=== PATIENT | male | born 1965 | race Hispanic/Latino ===

== ENCOUNTER 2020-07-07 13:34 | Emergency (ER) | payer OTHER, SELFPAY ==
[2020-07-07 13:47] VITALS: BP 127/78; PULSE 105; RESP 18; TEMP 39.4; O2SAT 96; BMI 23.3
[2020-07-07 14:26] LABS: COVID19 -Nasal RAPID Negative (Negative)
--- NOTE | 2020-07-07 14:42 | ED.GENADULT ---
HPI - General Adult General Chief complaint: Upper Respiratory Symptoms Stated complaint: sore throat, body aches Time Seen by Provider: 07/07/20 14:40 Source: patient Mode of arrival: Ambulatory Limitations: no limitations History of Present Illness HPI narrative: 55-year-old male. There is somewhat of a language barrier here for evaluation of a sore throat and a dry nose and bloody nose for the past 2 days. Has had a cough. No fevers. No rashes. Has not tried anything for symptoms prior to arrival. Related Data Allergies Allergy/AdvReac Type Severity Reaction Status Date / Time Penicillins [PENICILLINS] Allergy Unknown Verified 06/13/18 13:14 Review of Systems Constitutional Constitutional: Denies fatigue and Denies headache(s) Eyes Eyes: Denies eye pain ENT Ears, Nose, Mouth, and Throat: Denies headache(s), Reports epistaxis, Reports sinus pain and Reports sore throat Cardiovascular Cardiovascular: Denies chest pain and Denies dyspnea Respiratory Respiratory: Denies dyspnea Gastrointestinal Gastrointestinal: Denies abdominal pain, Denies nausea and Denies vomiting Genitourinary Genitourinary: Denies dysuria Genitourinary: Denies dysuria Musculoskeletal Musculoskeletal: Denies myalgias Integumentary/Breasts Skin/Breast: Denies rash Neurologic Neurologic: Denies behavioral changes and Denies headache(s) Psychiatric Psychiatric: Denies behavioral changes Endocrine Endocrine: Denies fatigue Hematologic/Lymphatic On Anticoagulants: No Allergic/Immunologic Allergic/Immunologic: Denies urticaria Patient History Medical History Patient denies medical problems Social History Smoking Status: Never smoker Smoking Status: Never smoker alcohol intake frequency: 3 or more drinks per day Substance Use Type: does not use Exam Initial Vital Signs Initial Vital Signs: Vital Signs Temperature 103 F H 07/07/20 13:47 Pulse Rate 105 H 07/07/20 13:47 Respiratory Rate 18 07/07/20 13:47 Blood Pressure 127/78 07/07/20 13:47 Pulse Oximetry 96 07/07/20 13:47 Const General: cooperative and comfortable Limitations: mental status not altered HENMT Head: normal to inspection and normocephalic Nose: external nose normal Face and sinus: normal facial exam Mouth: oral mucosae normal Throat: posterior oropharynx normal Eyes General: appearance normal, both eyes and all related structures Resp Effort & Inspection: normal respiratory effort Auscultation: clear to auscultation bilaterally Cardio Rate: regular rate Rhythm: regular rhythm GI Inspection: non-distended Palpation: soft Skin Lesions: no lesions Rashes: no rashes Neuro General: patient alert and patient awake Speech: speech normal Extrem General: normal to inspection and capillary refill normal Psych Appearance: grossly normal and well kempt Course Orders Ordered: ED Orders 07/07/20 14:00 COVID19 -Nasal swab/Pre-Proc Stat Discontinued Medications Dexamethasone (Dexamethasone 4 Mg Tablet) 12 mg PO NOW ONE Stop: 07/07/20 14:47 Vital Signs Vital signs: Vital Signs - 8 hr 07/07/20 13:47 Temperature 103 F H Pulse Rate 105 H Respiratory Rate 18 Blood Pressure 127/78 Pulse Oximetry 96 Medical Decision Making Lab Data Lab results reviewed: Yes I reviewed the patient's lab results. Labs: Lab Results 07/07/20 Range/Units 14:00 SARS-CoV-2 (PCR) Negative (Negative) Point of Care Testing Rapid Strep A Negative Point of care testing: Point of Care Testing Rapid Strep A Negative MDM Narrative Medical decision making narrative: Patient's COVID and rapid strep is negative. He has no signs of peritonsillar abscess. I do suspect given his symptoms that this is allergy/viral upper respiratory. No indication for antibiotics. He was given a dose of steroids as this will probably help much of his symptoms. Was given return precautions and follow-up instructions. He expressed understanding and agreement. Discharge Plan Departure Patient Disposition: Home Clinical Impression: Pharyngitis Instructions: Sore Throat Activity Restrictions/Additional Instructions: I recommend that you start a medicine called Claritin/loratadine. You can purchase this [id number] at any drug store/pharmacy. Take it as needed 1 time a day. Contact your primary provider for follow-up. Return to the emergency department for any new or worsening symptoms
[2020-07-07] MEDS: dexAMETHasone 4 MG TABLET 12 MG PO (15:06)
[2020-07-07 15:36] VITALS: PULSE 97; RESP 17; O2SAT 98
== END 2020-07-07 15:36 | disposition home or self-care (01) ==
PROVIDERS: Emergency Medicine; Emergency Provider Emergency Medicine
DX: J02.9 Acute pharyngitis, unspecified (principal); Z20.822 Contact with and (suspected) exposure to COVID-19; R04.0 Epistaxis
CPT/HCPCS: 87635; 87880; 99283; C9803

== ENCOUNTER 2020-07-09 04:48 | Emergency (ER) | payer OTHER, SELFPAY ==
[2020-07-09] VITALS (12 sets, daily range): BP systolic 117–145; BP diastolic 68–95; PULSE 96–135; RESP 18–25; TEMP 37.4–39.7; O2SAT 93–98; BMI 29.3
--- NOTE | 2020-07-09 05:04 | DI.RAD.S_ITS ---
PROCEDURE: XR CHEST 1V INDICATIONS: fever TECHNIQUE: One view of the chest was acquired. COMPARISON: [facility], CR, XR ABDOMEN 1 VIEW, 04/07/2019, 13:59. FINDINGS: Surgical changes and devices: None. Lungs and pleura: Patchy opacity at the left lung base. There is no pneumothorax or large volume pleural effusion. Mediastinum: Mediastinal contours appear normal. Heart size is normal. Bones and chest wall: No suspicious bony lesions. Overlying soft tissues appear unremarkable. IMPRESSION: Patchy opacity at the left lung base concerning for pneumonia in the correct clinical setting. Recommend follow-up to resolution. Dictated by: Danny Ponce D.O. on 07/09/2020 at 8:13 Approved by: Danny Ponce D.O. on 07/09/2020 at 8:15
--- NOTE | 2020-07-09 05:07 | ED_ITS ---
HPI - Fever <Sarai Gutierres DO - Last Filed: 07/10/20 00:16> General Chief Complaint: Fever Stated Complaint: FEVER, VOMITING, SHAKING Time Seen by Provider: 07/09/20 04:53 Source: patient and old records reviewed Mode of arrival: Ambulatory Limitations: no limitations History of Present Illness HPI Narrative: Patient is a 55-year-old male with no known past medical history presenting with fever and shaking. He was seen evaluated here 2 days ago with sore throat as he was tested for COVID and strep at that time and discharged home. He has been taking Tylenol and ibuprofen as needed. He says he has a mild sore throat now but says it really isn't bad. He has had some coughing off and on. His eyes any chest pain or palpitations pseudo abdominal pain he has had some nausea and vomiting and no diarrhea. He is currently found to be tachycardic with a fever of 103.5. Last dose of Tylenol was around 4:00 a.m. but he took 325 mg. MD complaint: fever Maximum Temperature: 103.5 F Related Data Previous Rx's Medication Instructions Recorded cefdinir 300 mg PO Q12H #14 cap 07/09/20 ibuprofen 800 mg PO Q8H PRN #20 tab 07/09/20 Allergies Allergy/AdvReac Type Severity Reaction Status Date / Time Penicillins [PENICILLINS] Allergy Unknown Verified 06/13/18 13:14 Review of Systems <Sarai Gutierres DO - Last Filed: 07/10/20 00:16> Review of Systems ROS Unobtainable: All systems reviewed & are unremarkable except as noted in HPI and below Constitutional Constitutional: Reports body ache(s), Reports chills, Reports fatigue, Reports fever(s) and Denies frequent falls ENT Ears, Nose, Mouth, and Throat: Denies change in voice, Denies dizziness, Denies neck pain and Denies sore throat Cardiovascular Cardiovascular: Denies chest pain, Denies irregular heart rhythm, Denies lightheadedness, Denies palpitations, Denies dyspnea, Denies dyspnea on exertion and Denies orthopnea Respiratory Respiratory: Reports cough, Denies dyspnea and Denies dyspnea on exertion Gastrointestinal Gastrointestinal: Denies abdominal pain, Denies change in bowel habits, Denies diarrhea, Denies nausea and Reports vomiting Genitourinary Genitourinary: Denies urinary hesitancy and Denies urinary urgency Genitourinary: Denies urinary hesitancy and Denies urinary urgency Musculoskeletal Musculoskeletal: Denies back pain, Denies myalgias, Denies neck pain and Denies numbness Integumentary/Breasts Skin/Breast: Denies pruritus, Denies erythema, Denies rash and Denies wounds Neurologic Neurologic: Denies behavioral changes, Denies confusion, Denies dizziness, Denies frequent falls and Denies numbness Psychiatric Psychiatric: Denies behavioral changes and Denies confusion Endocrine Endocrine: Reports fatigue and Denies palpitations Patient History <Sarai Gutierres DO - Last Filed: 07/10/20 00:16> Medical History Patient denies medical problems Social History Smoking Status: Never smoker Smoking Status: Never smoker alcohol intake frequency: 3 or more drinks per day Substance Use Type: does not use Exam <Sarai Gutierres DO - Last Filed: 07/10/20 00:16> Initial Vital Signs Initial Vital Signs: Vital Signs Temperature 103.5 F H 07/09/20 04:55 Pulse Rate 135 H 07/09/20 04:55 Respiratory Rate 25 H 07/09/20 04:55 Blood Pressure 145/92 H 07/09/20 04:55 Pulse Oximetry 98 07/09/20 04:55 GENERAL: Alert very talkative 55-year-old male and in no acute distress. HEENT: Head atraumatic,EOMI, pupils reactive, face symmetric, moist mucous membranes PHARYNX: Very minimal erythema no uvular swelling or deviation no tonsillar exudate airway intact CARDIOVASCULAR: Regular rate and rhythm without murmurs, rubs or gallops. RESPIRATORY: Breath sounds equal bilaterally, no wheezes rales or rhonchi. ABDOMEN: Soft, nontender. Normoactive bowel sounds all 4 quadrants. No guarding or rebound. : No CVA tenderness EXTREMITIES: Normal range of motion, no clubbing or edema. Neurovascularly intact NEUROLOGICAL: Alert and oriented x4.Normal gait and speech. SKIN: Warm, dry, no laceration, no petechiae, no rashes or lesions. <Crys Ryan DO - Last Filed: 07/09/20 18:47> Initial Vital Signs Initial Vital Signs: Vital Signs Temperature 103.5 F H 07/09/20 04:55 Pulse Rate 135 H 07/09/20 04:55 Respiratory Rate 25 H 07/09/20 04:55 Blood Pressure 145/92 H 07/09/20 04:55 Pulse Oximetry 98 07/09/20 04:55 Course <Sarai Nenita, - Last Filed: 07/10/20 00:16> Orders Ordered: Discontinued Medications Acetaminophen (Acetaminophen 325 Mg Tablet) 650 mg PO NOW ONE Stop: 07/09/20 05:05 Last Admin: 07/09/20 05:35 Dose: 650 mg Documented by: GUERDA Sodium Chloride (Normal Saline 0.9%) 1,000 mls @ 1,000 mls/hr IV CONT ALIN Last Infusion: 07/09/20 06:51 Dose: 0 mls/hr Documented by: Admin: 07/09/20 05:35 Dose: 1,000 mls/hr Documented by: GUERDA Sodium Chloride (Normal Saline 0.9%) 1,000 mls @ 1,000 mls/hr IV BOLUS ONE Stop: 07/09/20 07:48 Last Infusion: 07/09/20 08:17 Dose: 0 mls/hr Documented by: Admin: 07/09/20 06:56 Dose: 1,000 mls/hr Documented by: GUERDA Ceftriaxone Sodium/Dextrose (Rocephin) 1 gm in 50 mls @ 100 mls/hr IV NOW ONE Stop: 07/09/20 07:22 Last Infusion: 07/09/20 07:35 Dose: 0 mls/hr Documented by: Admin: 07/09/20 06:59 Dose: 100 mls/hr Documented by: GUERDA Ketorolac Tromethamine (Ketorolac 30 Mg/Ml Vial) 15 mg IV NOW ONE Stop: 07/09/20 05:05 Last Admin: 07/09/20 05:35 Dose: 15 mg Documented by: GUERDA Vital Signs Vital signs: Vital Signs - 8 hr 07/09/20 04:55 07/09/20 05:30 07/09/20 05:35 Temperature 103.5 F H 103.5 F H Pulse Rate 135 H 127 H Respiratory Rate 25 H 20 Blood Pressure 145/92 H 145/95 H Pulse Oximetry 98 95 07/09/20 06:00 07/09/20 06:30 07/09/20 06:45 Temperature 101.3 F H Pulse Rate 115 H 109 H Respiratory Rate 23 21 Blood Pressure 132/85 122/76 Pulse Oximetry 94 94 07/09/20 07:00 07/09/20 07:30 07/09/20 08:00 Temperature 99.7 F H Pulse Rate 116 H 105 H 96 H Respiratory Rate 22 19 19 Blood Pressure 137/83 117/68 120/73 Pulse Oximetry 93 93 95 07/09/20 08:30 07/09/20 08:53 Temperature 99.4 F Pulse Rate 96 H Respiratory Rate 18 Blood Pressure 123/73 Pulse Oximetry 95 <Crys Ryan DO - Last Filed: 07/09/20 18:47> Orders Ordered: Discontinued Medications Acetaminophen (Acetaminophen 325 Mg Tablet) 650 mg PO NOW ONE Stop: 07/09/20 05:05 Last Admin: 07/09/20 05:35 Dose: 650 mg Documented by: GEURDA Sodium Chloride (Normal Saline 0.9%) 1,000 mls @ 1,000 mls/hr IV CONT ALIN Last Infusion: 07/09/20 06:51 Dose: 0 mls/hr Documented by: Admin: 07/09/20 05:35 Dose: 1,000 mls/hr Documented by: GUERDA Sodium Chloride (Normal Saline 0.9%) 1,000 mls @ 1,000 mls/hr IV BOLUS ONE Stop: 07/09/20 07:48 Last Infusion: 07/09/20 08:17 Dose: 0 mls/hr Documented by: Admin: 07/09/20 06:56 Dose: 1,000 mls/hr Documented by: GUERDA Ceftriaxone Sodium/Dextrose (Rocephin) 1 gm in 50 mls @ 100 mls/hr IV NOW ONE Stop: 07/09/20 07:22 Last Infusion: 07/09/20 07:35 Dose: 0 mls/hr Documented by: Admin: 07/09/20 06:59 Dose: 100 mls/hr Documented by: GUERDA Ketorolac Tromethamine (Ketorolac 30 Mg/Ml Vial) 15 mg IV NOW ONE Stop: 07/09/20 05:05 Last Admin: 07/09/20 05:35 Dose: 15 mg Documented by: GUERDA Reevaluation(s) Reevaluation #1: Patient improved after fluids, Toradol and tylenol and received a dose of Rocephin in the department. Patient's did initially meet septic criteria with tachycardia, fever although patient did not have a leukocytosis he did have a leftward shift. 68 and ALT of 120 with no other major lab abnormalities. BUN was slightly elevated and patient was likely dehydrated. As was COVID and [facility] a strep swab as patient had complaint of pharyngitis on his prior visit. Throat culture is pending and imaging shows patchy left-sided infiltrate consistent with pneumonia. Blood cultures were also obtained and are pending today as well. Patient was started on cefdinir for coverage and is improved in the department on evaluation by myself and discharged home with strict return precautions. On re-evaluation patient is feeling better. He does request a prescription for 800 mg of ibuprofen to be sent to [facility] [place] along with his antibiotic. Time: 08:41 Vital Signs Vital signs: Vital Signs - 8 hr 07/09/20 04:55 07/09/20 05:30 07/09/20 05:35 Temperature 103.5 F H 103.5 F H Pulse Rate 135 H 127 H Respiratory Rate 25 H 20 Blood Pressure 145/92 H 145/95 H Pulse Oximetry 98 95 07/09/20 06:00 07/09/20 06:30 07/09/20 06:45 Temperature 101.3 F H Pulse Rate 115 H 109 H Respiratory Rate 23 21 Blood Pressure 132/85 122/76 Pulse Oximetry 94 94 07/09/20 07:00 07/09/20 07:30 07/09/20 08:00 Temperature 99.7 F H Pulse Rate 116 H 105 H 96 H Respiratory Rate 22 19 19 Blood Pressure 137/83 117/68 120/73 Pulse Oximetry 93 93 95 07/09/20 08:30 07/09/20 08:53 Temperature 99.4 F Pulse Rate 96 H Respiratory Rate 18 Blood Pressure 123/73 Pulse Oximetry 95 MDM - Fever <Sarai Gutierres DO - Last Filed: 07/10/20 00:16> Lab Data Attestation: I reviewed the patient's lab results. Result diagrams: 07/09/20 05:15 07/09/20 05:15 Labs: Lab Results 07/09/20 07/09/20 07/09/20 Range/Units 05:15 05:15 05:15 WBC 10.8 (4.5-11.0) X10^3/uL RBC 5.24 (4.5-5.9) X10^6/uL Hgb 16.0 (13.5-17.5) g/dL Hct 46.1 (41-53) % MCV 88.1 (80-100) fL MCH 30.5 (26-34) PG MCHC 34.7 (30-36) % RDW 12.8 (11.6-14.8) % Plt Count 205 (150-400) X10^3/uL Neut % (Auto) 79.1 H (50-75) % Lymph % (Auto) 9.9 L (25-40) % [place] % (Auto) 10.6 (3-14) % Eos % (Auto) 0.0 L (2-4) % Baso % (Auto) 0.4 (0-2) % Neut # (Auto) 8500 H (2749-4957) /uL Lymph # (Auto) 1100 (4403-1897) /uL [place] # (Auto) 1100 H (0-900) /uL Eos # (Auto) 0 (0-450) /uL Baso # (Auto) 0 (0-100) /uL Sodium 136 L (137-145) mmol/L Potassium 3.8 (3.4-5.1) mmol/L Chloride 100 (98-107) mmol/L Carbon Dioxide 27 (22-32) mmol/L BUN 28 H (9-20) mg/dL Creatinine 1.04 (0.66-1.25) mg/dL Estimated GFR > 60.0 (>60) mL/min BUN/Creatinine Ratio 26.9 H (6-22) Glucose 137 H (70-100) mg/dL Lactate 2.1 (0.7-2.1) mmol/L Calcium 9.4 (8.4-10.2) mg/dL Total Bilirubin 0.4 (0.2-1.3) mg/dL AST 68 H (17-59) IU/L ALT 120 H (<50) IU/L Alkaline Phosphatase 97 (38-126) U/L Total Protein 7.8 (6.3-8.2) g/dL Albumin 4.4 (3.5-5.0) g/dL Globulin 3.4 (1.7-4.1) g/dL Albumin/Globulin Ratio 1.3 (1.0-2.8) Procalcitonin 0.48 (<0.5) ng/mL Urine Color Urine Appearance Urine pH (4.5-8.0) Ur Specific [place] (1.000-1.035) Urine Protein (Negative) Urine Glucose (UA) (Negative) g/dL Urine Ketones (NEGATIVE) Urine Occult Blood (Negative) Urine Nitrate (Negative) Urine Bilirubin (NEGATIVE) Urine Urobilinogen (0.2) E.U./dL Ur Leukocyte Esterase (NEGATIVE) Urine RBC (0-5/HPF) Urine WBC (0-5/HPF) Ur Squamous Epith Cells (0-5/HPF) Urine Bacteria (None) Urine Mucus (Negative) Ur Culture Indicated? SARS-CoV-2 (PCR) (Negative) Group A Strep (PCR) 07/09/20 07/09/20 07/09/20 Range/Units 05:56 06:20 06:30 WBC (4.5-11.0) X10^3/uL RBC (4.5-5.9) X10^6/uL Hgb (13.5-17.5) g/dL Hct (41-53) % MCV (80-100) fL MCH (26-34) PG MCHC (30-36) % RDW (11.6-14.8) % Plt Count (150-400) X10^3/uL Neut % (Auto) (50-75) % Lymph % (Auto) (25-40) % [place] % (Auto) (3-14) % Eos % (Auto) (2-4) % Baso % (Auto) (0-2) % Neut # (Auto) (6174-9488) /uL Lymph # (Auto) (6775-3374) /uL [place] # (Auto) (0-900) /uL Eos # (Auto) (0-450) /uL Baso # (Auto) (0-100) /uL Sodium (137-145) mmol/L Potassium (3.4-5.1) mmol/L Chloride (98-107) mmol/L Carbon Dioxide (22-32) mmol/L BUN (9-20) mg/dL Creatinine (0.66-1.25) mg/dL Estimated GFR (>60) mL/min BUN/Creatinine Ratio (6-22) Glucose (70-100) mg/dL Lactate (0.7-2.1) mmol/L Calcium (8.4-10.2) mg/dL Total Bilirubin (0.2-1.3) mg/dL AST (17-59) IU/L ALT (<50) IU/L Alkaline Phosphatase (38-126) U/L Total Protein (6.3-8.2) g/dL Albumin (3.5-5.0) g/dL Globulin (1.7-4.1) g/dL Albumin/Globulin Ratio (1.0-2.8) Procalcitonin (<0.5) ng/mL Urine Color Yellow Urine Appearance Clear Urine pH 6.0 (4.5-8.0) Ur Specific [place] 1.025 (1.000-1.035) Urine Protein 1+ H (Negative) Urine Glucose (UA) Negative (Negative) g/dL Urine Ketones Negative (NEGATIVE) Urine Occult Blood Trace-lysed (Negative) Urine Nitrate Negative (Negative) Urine Bilirubin Negative (NEGATIVE) Urine Urobilinogen 0.2 (0.2) E.U./dL Ur Leukocyte Esterase Negative (NEGATIVE) Urine RBC 0-1/hpf (0-5/HPF) Urine WBC 0-1/hpf (0-5/HPF) Ur Squamous Epith Cells 0-1 /hpf (0-5/HPF) Urine Bacteria Occasional (0-1) (None) Urine Mucus 1+ H (Negative) Ur Culture Indicated? Cult not indicated SARS-CoV-2 (PCR) Negative (Negative) Group A Strep (PCR) Negative Imaging Data Chest x-ray: Radiologist's Impression: Patchy infiltrate within left lower lobe. ECG Data Attestation: I personally reviewed and interpreted this ECG as follows: Prior ECG tracings: not available for review Interpretation: Sinus tachycardia rate 123 p.r. interval 132 QRS 92 acute CC [address] changes or T-wave inversions MDM Narrative Medical decision making narrative: Patient has been complaining of sore throat he denies any cough or shortness of breath however x-ray does show patchy infiltrate within the left lower lobe. Culture for strep is sent to rapid strep are negative. Throat is mildly erythematous but no exudate. Heart rate improved with fever control and IV fluids. At this time will treat for pneumonia cover for strep with 3rd generation cephalosporin. Patient signed out to Dr. Ryan waiting for IV fluids and IV antibiotics <Crys Ryan, DO - Last Filed: 07/09/20 18:47> Lab Data Attestation: I reviewed the patient's lab results. Labs: Lab Results 07/09/20 07/09/20 07/09/20 Range/Units 05:15 05:15 05:15 WBC 10.8 (4.5-11.0) X10^3/uL RBC 5.24 (4.5-5.9) X10^6/uL Hgb 16.0 (13.5-17.5) g/dL Hct 46.1 (41-53) % MCV 88.1 (80-100) fL MCH 30.5 (26-34) PG MCHC 34.7 (30-36) % RDW 12.8 (11.6-14.8) % Plt Count 205 (150-400) X10^3/uL Neut % (Auto) 79.1 H (50-75) % Lymph % (Auto) 9.9 L (25-40) % [place] % (Auto) 10.6 (3-14) % Eos % (Auto) 0.0 L (2-4) % Baso % (Auto) 0.4 (0-2) % Neut # (Auto) 8500 H (0240-9410) /uL Lymph # (Auto) 1100 (9086-7724) /uL [place] # (Auto) 1100 H (0-900) /uL Eos # (Auto) 0 (0-450) /uL Baso # (Auto) 0 (0-100) /uL Sodium 136 L (137-145) mmol/L Potassium 3.8 (3.4-5.1) mmol/L Chloride 100 (98-107) mmol/L Carbon Dioxide 27 (22-32) mmol/L BUN 28 H (9-20) mg/dL Creatinine 1.04 (0.66-1.25) mg/dL Estimated GFR > 60.0 (>60) mL/min BUN/Creatinine Ratio 26.9 H (6-22) Glucose 137 H (70-100) mg/dL Lactate 2.1 (0.7-2.1) mmol/L Calcium 9.4 (8.4-10.2) mg/dL Total Bilirubin 0.4 (0.2-1.3) mg/dL AST 68 H (17-59) IU/L ALT 120 H (<50) IU/L Alkaline Phosphatase 97 (38-126) U/L Total Protein 7.8 (6.3-8.2) g/dL Albumin 4.4 (3.5-5.0) g/dL Globulin 3.4 (1.7-4.1) g/dL Albumin/Globulin Ratio 1.3 (1.0-2.8) Procalcitonin 0.48 (<0.5) ng/mL Urine Color Urine Appearance Urine pH (4.5-8.0) Ur Specific [place] (1.000-1.035) Urine Protein (Negative) Urine Glucose (UA) (Negative) g/dL Urine Ketones (NEGATIVE) Urine Occult Blood (Negative) Urine Nitrate (Negative) Urine Bilirubin (NEGATIVE) Urine Urobilinogen (0.2) E.U./dL Ur Leukocyte Esterase (NEGATIVE) Urine RBC (0-5/HPF) Urine WBC (0-5/HPF) Ur Squamous Epith Cells (0-5/HPF) Urine Bacteria (None) Urine Mucus (Negative) Ur Culture Indicated? SARS-CoV-2 (PCR) (Negative) Group A Strep (PCR) 07/09/20 07/09/20 07/09/20 Range/Units 05:56 06:20 06:30 WBC (4.5-11.0) X10^3/uL RBC (4.5-5.9) X10^6/uL Hgb (13.5-17.5) g/dL Hct (41-53) % MCV (80-100) fL MCH (26-34) PG MCHC (30-36) % RDW (11.6-14.8) % Plt Count (150-400) X10^3/uL Neut % (Auto) (50-75) % Lymph % (Auto) (25-40) % [place] % (Auto) (3-14) % Eos % (Auto) (2-4) % Baso % (Auto) (0-2) % Neut # (Auto) (0378-7424) /uL Lymph # (Auto) (7180-0401) /uL [place] # (Auto) (0-900) /uL Eos # (Auto) (0-450) /uL Baso # (Auto) (0-100) /uL Sodium (137-145) mmol/L Potassium (3.4-5.1) mmol/L Chloride (98-107) mmol/L Carbon Dioxide (22-32) mmol/L BUN (9-20) mg/dL Creatinine (0.66-1.25) mg/dL Estimated GFR (>60) mL/min BUN/Creatinine Ratio (6-22) Glucose (70-100) mg/dL Lactate (0.7-2.1) mmol/L Calcium (8.4-10.2) mg/dL Total Bilirubin (0.2-1.3) mg/dL AST (17-59) IU/L ALT (<50) IU/L Alkaline Phosphatase (38-126) U/L Total Protein (6.3-8.2) g/dL Albumin (3.5-5.0) g/dL Globulin (1.7-4.1) g/dL Albumin/Globulin Ratio (1.0-2.8) Procalcitonin (<0.5) ng/mL Urine Color Yellow Urine Appearance Clear Urine pH 6.0 (4.5-8.0) Ur Specific [place] 1.025 (1.000-1.035) Urine Protein 1+ H (Negative) Urine Glucose (UA) Negative (Negative) g/dL Urine Ketones Negative (NEGATIVE) Urine Occult Blood Trace-lysed (Negative) Urine Nitrate Negative (Negative) Urine Bilirubin Negative (NEGATIVE) Urine Urobilinogen 0.2 (0.2) E.U./dL Ur Leukocyte Esterase Negative (NEGATIVE) Urine RBC 0-1/hpf (0-5/HPF) Urine WBC 0-1/hpf (0-5/HPF) Ur Squamous Epith Cells 0-1 /hpf (0-5/HPF) Urine Bacteria Occasional (0-1) (None) Urine Mucus 1+ H (Negative) Ur Culture Indicated? Cult not indicated SARS-CoV-2 (PCR) Negative (Negative) Group A Strep (PCR) Negative MDM Narrative Medical decision making narrative: This is a 55-year-old male with no known past medical history who comes in with septic criteria with tachycardia and fever. Fever improved, tachycardia has also been improving although he still in the 106 wish to 102 range at times. Patient appears comfortable at bedside. He has not had any hypoxia. His workup shows pneumonia and this time patient does not meet septic criteria any longer. On exam by myself patient has improved. Patient was started on oral antibiotics. Plan for ibuprofen and Tylenol and patient was asked return if he is not improving in next 24-48 hours. Discharge Plan Departure Patient Disposition: Home Clinical Impression: Pneumonia, Pharyngitis Instructions: DI for Pharyngitis/Tonsillopharyngitis -- Adult, DI for Pneumonia -- Adult Activity Restrictions/Additional Instructions: *You have been diagnosed with pneumonia/pharyngitis *What to do: Increase fluids, rest *Continue to take medications as directed Cefdinir 300mg q 12hr for 7 days--> SENT TO [facility] in [place]. Tylenol 1000 mg every 6 hours if needed for fever Or Ibuprofen 800 mg every 8 hours if needed for fever *Follow up with your primary care provider in 2-3 days *Return to ER if you should have increasing pain, fever or any new, worsening or concerning symptoms Prescriptions: New cefdinir 300 mg capsule 300 mg PO Q12H Qty: 14 RF: 0 ibuprofen 800 mg tablet 800 mg PO Q8H PRN (Reason: pain) Qty: 20 RF: 0 Stand Alone Forms: Work Release Note
[2020-07-09 05:30] LABS: Add Manual Diff / Slide Review NO; Basophils Absolute Auto 0 /uL (0-100); Basophils Percent Auto 0.4 % (0-2); Eosinophils Absolute Auto 0 /uL (0-450); Hematocrit 46.1 % (41-53); Lymphocytes Absolute Auto 1100 /uL (1100-4500); Lymphocytes Percent Auto 9.9 % (25-40); Mean Corpuscular HGB Conc 34.7 % (30-36); Mean Corpuscular Hemoglobin 30.5 PG (26-34); Mean Corpuscular Volume 88.1 fL (80-100); Monocytes Absolute Auto 1100 /uL (0-900); Monocytes Percent Auto 10.6 % (3-14); Neutrophils Absolute Auto 8500 /uL (1500-7000); Neutrophils Percent Auto 79.1 % (50-75); Platelet Count 205 X10^3/uL (150-400); Red Blood Cell Count 5.24 X10^6/uL (4.5-5.9); Red Cell Distribution Width 12.8 % (11.6-14.8); White Blood Cell Count 10.8 X10^3/uL (4.5-11.0)
[2020-07-09] MEDS: SODIUM CHLORIDE 0.9% 1,000 ML 1000 ML IV ×2 (05:35→06:56)
[2020-07-09] MEDS: KETOROLAC 30 MG/ML VIAL 15 MG IV (05:35)
[2020-07-09] MEDS: ACETAMINOPHEN 325 MG TABLET 650 MG PO (05:35)
[2020-07-09 05:40] LABS: Alanine Aminotransferase 120 IU/L (<50); Albumin 4.4 g/dL (3.5-5.0); Albumin Globulin Ratio 1.3 (1.0-2.8); Alkaline Phosphatase 97 U/L (38-126); Aspartate Aminotransferase 68 IU/L (17-59); BUN Creatinine Ratio 26.9 (6-22); Bilirubin Total 0.4 mg/dL (0.2-1.3); Blood Urea Nitrogen 28 mg/dL (9-20); Calcium 9.4 mg/dL (8.4-10.2); Carbon Dioxide 27 mmol/L (22-32); Chloride 100 mmol/L (98-107); Estimated Glomerular Filt Rate > 60.0 mL/min (>60); Globulin 3.4 g/dL (1.7-4.1); Glucose 137 mg/dL (70-100); HEMOLYSIS < 15 (0-50); Lactate (Lactic Acid) 2.1 mmol/L (0.7-2.1); Potassium 3.8 mmol/L (3.4-5.1); Sodium 136 mmol/L (137-145); Total Protein 7.8 g/dL (6.3-8.2)
[2020-07-09 05:56] LABS: Procalcitonin 0.48 ng/mL (<0.5)
[2020-07-09 06:25] LABS: COVID19 -Nasal RAPID Negative (Negative)
[2020-07-09 06:42] LABS: Appearance Urine UA CLEAR; Bilirubin Urine UA NEGATIVE (NEGATIVE); Color Urine UA YELLOW; Glucose Urine UA NEGATIVE (Negative); Ketones Urine UA NEGATIVE (NEGATIVE); Leukocyte Esterase Urine UA NEGATIVE (NEGATIVE); Nitrite Urine UA NEGATIVE (Negative); Occult Blood Urine UA TRACE-LYSED (Negative); Protein Urine UA 1+ (Negative); Specific Gravity Urine UA 1.025 (1.000-1.035); Urobilinogen Urine UA 0.2 E.U./dL (0.2)
[2020-07-09 06:43] LABS: Strep Grp A by PCR Rapid Negative
[2020-07-09 06:50] LABS: Bacteria Urine Occasional (0-1); Mucus Urine 1+ (Negative); RBC Urine 0-1/HPF (0-5/HPF); Squamous Epithelial Cell Urine 0-1 /HPF (0-5/HPF); WBC Urine 0-1/HPF (0-5/HPF)
[2020-07-09 06:51] LABS: Culture Indicated Urine Cult Not Indicated
[2020-07-09] MEDS: CEFTRIAXONE 1 GM/50 ML FROZ.PIGGY IV (06:59)
[2020-07-09 07:22] LABS: Reflexed Lactate in 2 Hours Y
== END 2020-07-09 09:19 | disposition home or self-care (01) ==
PROVIDERS: Emergency Medicine; Emergency Provider Emergency Medicine
DX: J18.9 Pneumonia, unspecified organism (principal); J02.9 Acute pharyngitis, unspecified; R05 Cough; R11.2 Nausea with vomiting, unspecified; Z20.822 Contact with and (suspected) exposure to COVID-19
CPT/HCPCS: 36415; 71045; 80053; 81001; 83605; 84145; 85025; 87040; 87070; 87635; 87651; 93005; 96365; 96375; 99284; C9803; J1885

== ENCOUNTER 2020-07-12 17:03 | Inpatient (IN) | payer OTHER, SELFPAY ==
[2020-07-12] VITALS (12 sets, daily range): BP systolic 117–148; BP diastolic 70–88; PULSE 101–121; RESP 20–34; TEMP 36.9–39.5; O2SAT 90–93; BMI 31.2
--- NOTE | 2020-07-12 17:16 | DI.RAD.S_ITS ---
PROCEDURE: XR CHEST 1V INDICATIONS: suspected sepsis TECHNIQUE: One view of the chest was acquired. COMPARISON: [facility], CR, XR CHEST 1V, 07/09/2020, 5:09. FINDINGS: Surgical changes and devices: None. Lungs and pleura: There is pulmonary vascular congestion. Bilateral perihilar infiltrates and left infrahilar infiltrate cannot be excluded. No pleural effusions or pneumothorax. Mediastinum: Mediastinal contours appear normal. Heart size is enlarged. Bones and chest wall: No suspicious bony lesions. Overlying soft tissues appear unremarkable. IMPRESSION: Finding is concerning for bilateral perihilar and left infrahilar infiltrates. No pleural effusion or pneumothorax. Dictated by: Cayetano Mcadams M.D. on 07/12/2020 at 17:54 Approved by: Cayetano Mcadams M.D. on 07/12/2020 at 17:54
[2020-07-12] MEDS: SODIUM CHLORIDE 0.9% 1,000 ML 1000 ML IV (17:26)
[2020-07-12] MEDS: ACETAMINOPHEN 325 MG TABLET 650 MG PO ×2 (17:31→23:59)
[2020-07-12 17:40] LABS: INR 1.4 (0.9-1.3); Prothrombin Time 15.5 SECONDS (10.1-12.7)
[2020-07-12 17:43] LABS: Add Manual Diff / Slide Review NO; Basophils Absolute Auto 0 /uL (0-100); Basophils Percent Auto 0.2 % (0-2); Eosinophils Absolute Auto 0 /uL (0-450); Eosinophils Percent Auto 0.1 % (2-4); Hematocrit 42.3 % (41-53); Hemoglobin 14.9 g/dL (13.5-17.5); Lymphocytes Absolute Auto 500 /uL (1100-4500); Lymphocytes Percent Auto 5.1 % (25-40); Mean Corpuscular HGB Conc 35.3 % (30-36); Mean Corpuscular Hemoglobin 30.7 PG (26-34); Mean Corpuscular Volume 86.8 fL (80-100); Monocytes Absolute Auto 700 /uL (0-900); Monocytes Percent Auto 7.5 % (3-14); Neutrophils Absolute Auto 8300 /uL (1500-7000); Neutrophils Percent Auto 87.1 % (50-75); PTT Partial Thromboplastin Tim 32 SECONDS (26.4-36.2); Platelet Count 258 X10^3/uL (150-400); Red Blood Cell Count 4.87 X10^6/uL (4.5-5.9); Red Cell Distribution Width 12.7 % (11.6-14.8); White Blood Cell Count 9.5 X10^3/uL (4.5-11.0)
[2020-07-12 17:47] LABS: Lactate (Lactic Acid) 1.1 mmol/L (0.7-2.1)
[2020-07-12 17:49] LABS: Alanine Aminotransferase 130 IU/L (<50); Albumin 3.7 g/dL (3.5-5.0); Albumin Globulin Ratio 1.1 (1.0-2.8); Alkaline Phosphatase 161 U/L (38-126); Aspartate Aminotransferase 82 IU/L (17-59); Bilirubin Total 0.9 mg/dL (0.2-1.3); Blood Urea Nitrogen 18 mg/dL (9-20); Calcium 8.9 mg/dL (8.4-10.2); Carbon Dioxide 21 mmol/L (22-32); Chloride 103 mmol/L (98-107); Estimated Glomerular Filt Rate > 60.0 mL/min (>60); Globulin 3.4 g/dL (1.7-4.1); Glucose 153 mg/dL (70-100); HEMOLYSIS < 15 (0-50); Lipase 54 U/L (23-300); Potassium 3.9 mmol/L (3.4-5.1); Sodium 134 mmol/L (137-145); Total Protein 7.1 g/dL (6.3-8.2)
[2020-07-12 18:04] LABS: Procalcitonin 0.78 ng/mL (<0.5)
--- NOTE | 2020-07-12 18:06 | ED_ITS ---
HPI - SOB/Dyspnea General Chief Complaint: Shortness of Breath/Dyspnea Stated Complaint: states can't breathe, sore throat Time Seen by Provider: 07/12/20 17:25 Source: patient Mode of arrival: Wheelchair Limitations: no limitations History of Present Illness HPI Narrative: 55-year-old male nonsmoker with noncontributory medical history returns for the 3rd time this week and a chief complaint of worsening shortness of breath cough, fever. He was seen and evaluated earlier for more mild symptoms and after thorough evaluation was discharged on prescription for cefdinir. He returns with a chief complaint of worsening symptoms. He denies any nausea, vomiting or diarrhea. He denies dysuria, frequency or urgency. Minimal exertion makes him quite short of breath and fatigued and he admits that he feels terrible. Related Data Previous Rx's Medication Instructions Recorded cefdinir 300 mg PO Q12H #14 cap 07/09/20 ibuprofen 800 mg PO Q8H PRN #20 tab 07/09/20 Allergies Allergy/AdvReac Type Severity Reaction Status Date / Time Penicillins [PENICILLINS] Allergy Unknown Verified 07/12/20 17:17 Review of Systems Constitutional Constitutional: Reports chills, Reports fatigue, Reports fever(s), Denies frequent falls, Denies lethargy and Reports weakness Eyes Eyes: Denies change in vision, Denies eye discharge, Denies irritation and Denies loss of vision ENT Ears, Nose, Mouth, and Throat: Denies change in voice, Denies dizziness, Denies neck pain, Reports sore throat and Denies throat swelling Cardiovascular Cardiovascular: Denies chest pain, Denies irregular heart rhythm, Denies lightheadedness, Denies palpitations, Reports dyspnea, Reports dyspnea on exertion and Denies orthopnea Respiratory Respiratory: Reports cough, Reports dyspnea, Reports dyspnea on exertion and Denies wheezing Gastrointestinal Gastrointestinal: Denies abdominal pain, Denies change in bowel habits, Denies diarrhea, Denies nausea and Denies vomiting Musculoskeletal Musculoskeletal: Denies neck pain and Denies numbness Integumentary/Breasts Skin/Breast: Denies pruritus, Denies erythema, Denies rash and Denies wounds Neurologic Neurologic: Denies behavioral changes, Denies confusion, Denies dizziness, Denies frequent falls, Denies loss of vision, Denies numbness and Reports weakness Psychiatric Psychiatric: Denies anxiety, Denies behavioral changes, Denies confusion, Denies depression, Denies homicidal ideation and Denies suicidal ideation Endocrine Endocrine: Reports fatigue, Denies flushing and Denies palpitations Hematologic/Lymphatic Hematologic/Lymphatic: Denies easy bruising Allergic/Immunologic Allergic/Immunologic: Denies urticaria, Denies throat swelling and Denies wheezing Patient History Medical History Alcohol use Patient denies medical problems Surgical History History of kidney surgery Family History Mother Unknown family medical history Father Unknown family medical history Social History marital status: unmarried,single details: Single dad, daughter is 15 years of age number of children: 1 household members: family and children lives independently: Yes housing: house occupational status: employed Smoking Status: Never smoker alcohol intake: current Smoking Status: Never smoker alcohol intake frequency: 3 or more drinks per day Substance Use Type: does not use Exam Initial Vital Signs Initial Vital Signs: Vital Signs Temperature 103.1 F H 07/12/20 17:10 Pulse Rate 120 H 07/12/20 17:10 Respiratory Rate 24 07/12/20 17:10 Blood Pressure 148/85 H 07/12/20 17:10 Pulse Oximetry 90 L 07/12/20 17:10 Course Orders Ordered: Acetaminophen (Acetaminophen 325 Mg Tablet) 650 mg PO Q6HR PRN PRN Reason: Fever/Mild Pain (1-3) Last Admin: 07/12/20 23:59 Dose: 650 mg Documented by: DANIELLE Albuterol (Albuterol 2.5 Mg/3 Ml Neb (Adult)) 2.5 mg INH [id number] PRN PRN Reason: Dyspnea Albuterol/Ipratropium (Albuterol/Ipratropium 3 Ml Ampul) 3 ml INH [id number] PRN PRN Reason: Dyspnea Azithromycin (Azithromycin 250 Mg Tablet) 500 mg PO DAILY ALIN Benzocaine (Benzocaine/Menthol 1 Que Pkt) 1 each PO Q4HR PRN PRN Reason: Sore Throat Last Admin: 07/13/20 01:13 Dose: 1 each Documented by: DANIELLE Budesonide (Budesonide 0.5 Mg/2 Ml Neb) 0.5 mg INH RTBID ALIN Enoxaparin Sodium (Enoxaparin 40 Mg/0.4 Ml Syringe) 40 mg SUBCUT DAILY [facility] Ceftriaxone Sodium/Dextrose (Rocephin) 1 gm in 50 mls @ 100 mls/hr IV Q24H AILN Last Admin: 07/12/20 20:21 Dose: 100 mls/hr Documented by: TIERRAOWALECIA Ibuprofen (Ibuprofen 600 Mg Tablet) 600 mg PO Q6HR PRN PRN Reason: Fever/Mild Pain (1-3) Last Admin: 07/13/20 03:18 Dose: 600 mg Documented by: DANIELLE Naloxone HCl (Naloxone 0.4 Mg/Ml Vial) 0.2 mg IV Q2MIN PRN PRN Reason: Opiate Reversal Ondansetron HCl (Ondansetron 4 Mg/2 Ml Inj) 4 mg IV Q8HR PRN PRN Reason: Nausea And Vomiting Sodium Chloride (Sodium Chloride 0.9% Flush) 10 ml IV PRN PRN PRN Reason: Flush Sodium Chloride (Sodium Chloride 0.9% Flush) 10 ml IV BID [facility] Discontinued Medications Acetaminophen (Acetaminophen 325 Mg Tablet) 650 mg PO NOW ONE Stop: 07/12/20 17:27 Last Admin: 07/12/20 17:31 Dose: 650 mg Documented by: JANIE Sodium Chloride (Normal Saline 0.9%) 1,000 mls @ 1,000 mls/hr IV BOLUS ONE Stop: 07/12/20 18:15 Last Infusion: 07/12/20 18:33 Dose: 0 mls/hr Documented by: Admin: 07/12/20 17:26 Dose: 1,000 mls/hr Documented by: JANIE Levofloxacin (Levaquin) 500 mg in 100 mls @ 100 mls/hr IV NOW ONE Stop: 07/12/20 18:48 Last Infusion: 07/12/20 20:16 Dose: 0 mls/hr Documented by: Infusion: 07/12/20 18:59 Dose: 100 mls/hr Documented by: Admin: 07/12/20 18:21 Dose: 100 mls/hr Documented by: JANIE Vital Signs Vital signs: Vital Signs - 8 hr 07/12/20 17:10 Temperature 103.1 F H Pulse Rate 120 H Respiratory Rate 24 Blood Pressure 148/85 H Pulse Oximetry 90 L MDM - SOB/Dyspnea Lab Data Result diagrams: 07/12/20 17:20 07/12/20 17:20 Labs: Lab Results 07/12/20 07/12/20 07/12/20 Range/Units 17:20 17:20 17:20 WBC 9.5 (4.5-11.0) X10^3/uL RBC 4.87 (4.5-5.9) X10^6/uL Hgb 14.9 (13.5-17.5) g/dL Hct 42.3 (41-53) % MCV 86.8 (80-100) fL MCH 30.7 (26-34) PG MCHC 35.3 (30-36) % RDW 12.7 (11.6-14.8) % Plt Count 258 (150-400) X10^3/uL Neut % (Auto) 87.1 H (50-75) % Lymph % (Auto) 5.1 L (25-40) % [place] % (Auto) 7.5 (3-14) % Eos % (Auto) 0.1 L (2-4) % Baso % (Auto) 0.2 (0-2) % Neut # (Auto) 8300 H (4768-3483) /uL Lymph # (Auto) 500 L (5572-2508) /uL [place] # (Auto) 700 (0-900) /uL Eos # (Auto) 0 (0-450) /uL Baso # (Auto) 0 (0-100) /uL PT 15.5 H (10.1-12.7) SECONDS INR 1.4 H (0.9-1.3) APTT 32 (26.4-36.2) SECONDS Sodium 134 L (137-145) mmol/L Potassium 3.9 (3.4-5.1) mmol/L Chloride 103 (98-107) mmol/L Carbon Dioxide 21 L (22-32) mmol/L BUN 18 (9-20) mg/dL Creatinine 0.90 (0.66-1.25) mg/dL Estimated GFR > 60.0 (>60) mL/min BUN/Creatinine Ratio 20.0 (6-22) Glucose 153 H (70-100) mg/dL Lactate (0.7-2.1) mmol/L Calcium 8.9 (8.4-10.2) mg/dL Magnesium (1.6-2.3) mg/dL Total Bilirubin 0.9 (0.2-1.3) mg/dL AST 82 H (17-59) IU/L ALT 130 H (<50) IU/L Alkaline Phosphatase 161 H D (38-126) U/L Total Protein 7.1 (6.3-8.2) g/dL Albumin 3.7 (3.5-5.0) g/dL Globulin 3.4 (1.7-4.1) g/dL Albumin/Globulin Ratio 1.1 (1.0-2.8) Lipase 54 (23-300) U/L Procalcitonin 0.78 H (<0.5) ng/mL Chlamy pneumoniae PCR (Not Detect) Adenovirus (PCR) (Not Detect) B. pertussis DNA (PCR) (Not Detecte) B.parapertussis DNA PCR (Not Detecte) Coronavirus OC43 (PCR) (Not Detect) Coronavirus HKU1 (PCR) (Not Detect) Coronavirus 229E (PCR) (Not Detect) SARS-CoV-2 (PCR) (Negative) Coronavirus NL63 (PCR) (Not Detect) Human Metapneumovir PCR (Not Detect) Influenza Type A (PCR) (Not Detect) Influenza Type B (PCR) (Not Detect) M. pneumoniae (PCR) (Not Detect) Parainfluenza 1 (PCR) (Not Detect) Parainfluenza 2 (PCR) (Not Detect) Parainfluenza 3 (PCR) (Not Detect) Parainfluenza 4 (PCR) (Not Detect) RSV (PCR) (Not Detect) Entero/Rhino (PCR) (Not Detect) 07/12/20 07/12/20 07/12/20 Range/Units 17:20 17:20 17:20 WBC (4.5-11.0) X10^3/uL RBC (4.5-5.9) X10^6/uL Hgb (13.5-17.5) g/dL Hct (41-53) % MCV (80-100) fL MCH (26-34) PG MCHC (30-36) % RDW (11.6-14.8) % Plt Count (150-400) X10^3/uL Neut % (Auto) (50-75) % Lymph % (Auto) (25-40) % [place] % (Auto) (3-14) % Eos % (Auto) (2-4) % Baso % (Auto) (0-2) % Neut # (Auto) (5996-5293) /uL Lymph # (Auto) (6923-8979) /uL [place] # (Auto) (0-900) /uL Eos # (Auto) (0-450) /uL Baso # (Auto) (0-100) /uL PT (10.1-12.7) SECONDS INR (0.9-1.3) APTT (26.4-36.2) SECONDS Sodium (137-145) mmol/L Potassium (3.4-5.1) mmol/L Chloride (98-107) mmol/L Carbon Dioxide (22-32) mmol/L BUN (9-20) mg/dL Creatinine (0.66-1.25) mg/dL Estimated GFR (>60) mL/min BUN/Creatinine Ratio (6-22) Glucose (70-100) mg/dL Lactate 1.1 (0.7-2.1) mmol/L Calcium (8.4-10.2) mg/dL Magnesium 2.3 (1.6-2.3) mg/dL Total Bilirubin (0.2-1.3) mg/dL AST (17-59) IU/L ALT (<50) IU/L Alkaline Phosphatase (38-126) U/L Total Protein (6.3-8.2) g/dL Albumin (3.5-5.0) g/dL Globulin (1.7-4.1) g/dL Albumin/Globulin Ratio (1.0-2.8) Lipase (23-300) U/L Procalcitonin (<0.5) ng/mL Chlamy pneumoniae PCR (Not Detect) Adenovirus (PCR) (Not Detect) B. pertussis DNA (PCR) (Not Detecte) B.parapertussis DNA PCR (Not Detecte) Coronavirus OC43 (PCR) (Not Detect) Coronavirus HKU1 (PCR) (Not Detect) Coronavirus 229E (PCR) (Not Detect) SARS-CoV-2 (PCR) Negative (Negative) Coronavirus NL63 (PCR) (Not Detect) Human Metapneumovir PCR (Not Detect) Influenza Type A (PCR) (Not Detect) Influenza Type B (PCR) (Not Detect) M. pneumoniae (PCR) (Not Detect) Parainfluenza 1 (PCR) (Not Detect) Parainfluenza 2 (PCR) (Not Detect) Parainfluenza 3 (PCR) (Not Detect) Parainfluenza 4 (PCR) (Not Detect) RSV (PCR) (Not Detect) Entero/Rhino (PCR) (Not Detect) 07/12/20 Range/Units 18:20 WBC (4.5-11.0) X10^3/uL RBC (4.5-5.9) X10^6/uL Hgb (13.5-17.5) g/dL Hct (41-53) % MCV (80-100) fL MCH (26-34) PG MCHC (30-36) % RDW (11.6-14.8) % Plt Count (150-400) X10^3/uL Neut % (Auto) (50-75) % Lymph % (Auto) (25-40) % [place] % (Auto) (3-14) % Eos % (Auto) (2-4) % Baso % (Auto) (0-2) % Neut # (Auto) (8027-5811) /uL Lymph # (Auto) (3258-8034) /uL [place] # (Auto) (0-900) /uL Eos # (Auto) (0-450) /uL Baso # (Auto) (0-100) /uL PT (10.1-12.7) SECONDS INR (0.9-1.3) APTT (26.4-36.2) SECONDS Sodium (137-145) mmol/L Potassium (3.4-5.1) mmol/L Chloride (98-107) mmol/L Carbon Dioxide (22-32) mmol/L BUN (9-20) mg/dL Creatinine (0.66-1.25) mg/dL Estimated GFR (>60) mL/min BUN/Creatinine Ratio (6-22) Glucose (70-100) mg/dL Lactate (0.7-2.1) mmol/L Calcium (8.4-10.2) mg/dL Magnesium (1.6-2.3) mg/dL Total Bilirubin (0.2-1.3) mg/dL AST (17-59) IU/L ALT (<50) IU/L Alkaline Phosphatase (38-126) U/L Total Protein (6.3-8.2) g/dL Albumin (3.5-5.0) g/dL Globulin (1.7-4.1) g/dL Albumin/Globulin Ratio (1.0-2.8) Lipase (23-300) U/L Procalcitonin (<0.5) ng/mL Chlamy pneumoniae PCR Not detected (Not Detect) Adenovirus (PCR) Not detected (Not Detect) B. pertussis DNA (PCR) Not detected (Not Detecte) B.parapertussis DNA PCR Not detected (Not Detecte) Coronavirus OC43 (PCR) Not detected (Not Detect) Coronavirus HKU1 (PCR) Not detected (Not Detect) Coronavirus 229E (PCR) Not detected (Not Detect) SARS-CoV-2 (PCR) Not detected (Negative) Coronavirus NL63 (PCR) Not detected (Not Detect) Human Metapneumovir PCR Not detected (Not Detect) Influenza Type A (PCR) Not detected (Not Detect) Influenza Type B (PCR) Not detected (Not Detect) M. pneumoniae (PCR) Not detected (Not Detect) Parainfluenza 1 (PCR) Not detected (Not Detect) Parainfluenza 2 (PCR) Not detected (Not Detect) Parainfluenza 3 (PCR) Not detected (Not Detect) Parainfluenza 4 (PCR) Not detected (Not Detect) RSV (PCR) Not detected (Not Detect) Entero/Rhino (PCR) Not detected (Not Detect) Imaging Data Chest x-ray: Radiologist's Impression: Chart Viewer Diagnostics DATE TYPE STATUS REF RANGE/AUTHOR Hx 07/12/20 17:16 Cayetano Mcadams 07/09/20 05:04 Danny Ponce 11/25/15 12:10 Tushar Sanabria 55, M0 1965 ADM IN, AC 222 -1 157.48cm 70.6kg BMI: 28.5kg/m? Search Chart No Data to Display ONSET Today 05:18 Tushar Sanabria 55 M [address] [id number] ReportSigned Patient: Tushar Sanabria RMR#: [id number]: 1965Acct:[id number]/Sex: 55 / MDate of Service: 07/12/20Loc: EDAccession Number: [id number] Procedure: XR chest 1V Ordering Provider: Ata Puentes D.O. PROCEDURE: XR CHEST 1V INDICATIONS: suspected sepsis TECHNIQUE: One view of the chest was acquired. COMPARISON: [facility], CR, XR CHEST 1V, 07/09/2020, 5:09. FINDINGS: Surgical changes and devices: None. Lungs and pleura: There is pulmonary vascular congestion. Bilateral perihilar infiltrates and left infrahilar infiltrate cannot be excluded. No pleural effusions or pneumothorax. Mediastinum: Mediastinal contours appear normal. Heart size is enlarged. Bones and chest wall: No suspicious bony lesions. Overlying soft tissues appear unremarkable. IMPRESSION: Finding is concerning for bilateral perihilar and left infrahilar infiltrates. No pleural effusion or pneumothorax. Dictated by: Cayetano Mcadams M.D. on 07/12/2020 at 17:54 Approved by: Cayetano Mcadams M.D. on 07/12/2020 at 17:54 [facility] Narrative Medical decision making narrative: Patient returns for 3rd visit this week with increasing symptoms. Chest x-ray shows a bilateral pneumonia, patient with crackles in bilateral lungs and increased work of breathing. He shows signs of sepsis with tachycardia, tachypnea and pulse ox it drops into the 80s with minimal exertion. He will required hospitalization for stabilization and further treatment of his condition. The patient understands and agrees with the plan. Hospitalist is happy to accept Discharge Plan Departure Patient Disposition: Admitted As Inpatient Clinical Impression: Pneumonia Qualifiers: Pneumonia type: due to unspecified organism Laterality: bilateral Lung location: unspecified part of lung Qualified Code(s): J18.9 - Pneumonia, unspecified organism Sepsis Qualifiers: Sepsis type: sepsis due to unspecified organism Sepsis acute organ dysfunction status: unspecified Qualified Code(s): A41.9 - Sepsis, unspecified organism Admit Date/Time: 07/12/20 18:21 Admit Provider: Reena Dior
[2020-07-12] MEDS: levoFLOXacin 500 MG/100 ML PIGGYBACK 100 MG IV (18:21)
[2020-07-12 18:45] LABS: COVID19 - ADMIT (NP swab/PCR) Negative (Negative)
[2020-07-12 19:42] LABS: Adenovirus Not Detected (Not Detect); B. parapertussis Not Detected (Not Detecte); Bordetella pertussis Not Detected (Not Detecte); Chlamydophila pneumoniae Not Detected (Not Detect); Coronavirus 229E Not Detected (Not Detect); Coronavirus HKU1 Not Detected (Not Detect); Coronavirus NL 63 Not Detected (Not Detect); Coronavirus OC43 Not Detected (Not Detect); Human Metapneumovirus Not Detected (Not Detect); Human Rhinovirus/Enterovirus Not Detected (Not Detect); Influenza A Not Detected (Not Detect); Influenza B Not Detected (Not Detect); Mycoplasma pneumoniae Not Detected (Not Detect); Parainfluenza Virus 1 Not Detected (Not Detect); Parainfluenza Virus 2 Not Detected (Not Detect); Parainfluenza Virus 3 Not Detected (Not Detect); Parainfluenza Virus 4 Not Detected (Not Detect); Respiratory Syncytial Virus Not Detected (Not Detect); SARS- CoV-2 Not Detected (Not Detecte)
[2020-07-12] MEDS: CEFTRIAXONE 1 GM/50 ML FROZ.PIGGY IV (20:21)
--- NOTE | 2020-07-12 22:17 | P.HP_ITS ---
History of Present Illness History of Present Illness Date Patient Seen: 07/12/20 Time Patient Seen: 20:00 Chief complaint: states can't breathe, sore throat Narrative: Tushar Sanabria is a pleasant 55 y.o. speaking male who presented with a several day history of fevers, chills and sore throat. He had a fever of 104 and was seen in the ED on July 07 and July 09. He had been discharged on cefdinir and advised to take alternating doses of OTC tylenol and ibuprofen for his fevers. States he had pneumonia in 2006 which was much worse. His main comp laint is fever, cough, sore throat and shortness of breath. Denies sick contacts at home or work, n/v, chest pain, abdominal pain, dysuria, diarrhea or constipation. He states he regularly drinks 3 beers a day, but has not had a drink for 6 days and has not experienced withdrawals if he has had to stop drinking in the past. He has a minimal medical history. Chest x-ray done in the emergency department indicated a finding of ?bilateral perihilar and left infrahilar infiltrates. Patient's T-max was 103.1? and it is currently 99.8, blood pressure 130/82, heart rate 104, respiratory rate 21, o xygen saturation of 93% on 1 L, he weighs 69 kg with a BMI of 28. CBC is normal with exception of a mildly elevated neutrophil count of 8300, sodium 134, potassium 3.9, chloride 103, bicarb 21, BUN 18, creatinine 0.9, with a GFR of greater than 60, glucose was 153, lactate 1.1, liver enzymes are elevated with an AST of 82, ALT 130, alk-phos 161, procalcitonin was positive at 0.78, and viral panel including COVID-19 PCR are negative. Patient History Medical History Alcohol use Patient denies medical problems Surgical History History of kidney surgery Family & Social History Family History Mother Unknown family medical history Father Unknown family medical history Social History: household members family Prior Living Arrangements Apartment/Condo Safety & Behavioral: Feels Safe in Current Yes Environment Been Physically Hurt or No Threatened By a Person Suicidal Ideation Description None Suicide Plan Description No Plan Tobacco & Substance use: Smoking Status Never smoker alcohol intake current alcohol intake frequency 3 or more drinks per day, last drink 6 days ago Substance Use Type does not use Meds Home Medications and Allergies Home Medications Medication Instructions Recorded Confirmed Type cefdinir 300 mg PO Q12H #14 cap 07/09/20 07/12/20 Rx ibuprofen 800 mg PO Q8H PRN #20 tab 07/09/20 07/12/20 Rx Allergies Allergy/AdvReac Type Severity Reaction Status Date / Time Penicillins [PENICILLINS] Allergy Unknown Verified 07/12/20 17:17 Review of Systems Review of Systems ROS: Yes All systems reviewed with the patient and are negative except as otherwise documented Exam Vital Signs (past 8 hours): - 07/12/20 17:10 07/12/20 17:12 07/12/20 17:30 Temperature 103.1 F H Pulse Rate 120 H 121 H 116 H Respiratory Rate 24 28 H 34 H Blood Pressure 148/85 H 136/79 Pulse Oximetry 90 L 91 92 07/12/20 18:00 07/12/20 18:27 07/12/20 18:30 Temperature 98.5 F Pulse Rate 112 H 107 H Respiratory Rate 25 H 25 H Blood Pressure 117/73 119/73 Pulse Oximetry 92 93 07/12/20 18:50 07/12/20 19:47 Temperature 101.3 F H 99.8 F H Pulse Rate 104 H Respiratory Rate 21 Blood Pressure 130/82 Pulse Oximetry 93 Oxygen Delivery Method Nasal Cannula Oxygen Flow Rate 1 Narrative Exam Narrative: Gen: Alert, oriented, well-developed 55 y.o. Hispanicmale, NAD HEENT: normocephalic, atraumatic, conjunctiva clear, sclera non-icteric, oral mucosa pink and moist Neck: supple, full ROM, no JVD, trachea is midline Resp: Bilateral wheezes, non-labored breathing CV: RRR, no murmur or rubs Abd: soft, non-tender, normoactive BTs Skin: no lesions or rashes, dry and intact Neuro: Alert and oriented X 4 w/no focal deficits. Speech clear and coherent. Extremities: moves all 4 extremities, is ambulatory, negative Kaylynn?s sign Psyche: normal mood and affect. Objective Labs Result Diagrams: 07/12/20 17:20 07/12/20 17:20 Labs: Laboratory Results - last 24 hr 07/12/20 07/12/20 07/12/20 17:20 17:20 17:20 WBC 9.5 RBC 4.87 Hgb 14.9 Hct 42.3 MCV 86.8 MCH 30.7 MCHC 35.3 RDW 12.7 Plt Count 258 Neut % (Auto) 87.1 H Lymph % (Auto) 5.1 L [place] % (Auto) 7.5 Eos % (Auto) 0.1 L Baso % (Auto) 0.2 Neut # (Auto) 8300 H Lymph # (Auto) 500 L [place] # (Auto) 700 Eos # (Auto) 0 Baso # (Auto) 0 PT 15.5 H INR 1.4 H APTT 32 Sodium 134 L Potassium 3.9 Chloride 103 Carbon Dioxide 21 L BUN 18 Creatinine 0.90 Estimated GFR > 60.0 BUN/Creatinine Ratio 20.0 Glucose 153 H Lactate Calcium 8.9 Total Bilirubin 0.9 AST 82 H ALT 130 H Alkaline Phosphatase 161 H D Total Protein 7.1 Albumin 3.7 Globulin 3.4 Albumin/Globulin Ratio 1.1 Lipase 54 Procalcitonin 0.78 H Chlamy pneumoniae PCR Adenovirus (PCR) B. pertussis DNA (PCR) B.parapertussis DNA PCR Coronavirus OC43 (PCR) Coronavirus HKU1 (PCR) Coronavirus 229E (PCR) SARS-CoV-2 (PCR) Coronavirus NL63 (PCR) Human Metapneumovir PCR Influenza Type A (PCR) Influenza Type B (PCR) M. pneumoniae (PCR) Parainfluenza 1 (PCR) Parainfluenza 2 (PCR) Parainfluenza 3 (PCR) Parainfluenza 4 (PCR) RSV (PCR) Entero/Rhino (PCR) 07/12/20 07/12/20 07/12/20 17:20 17:20 18:20 WBC RBC Hgb Hct MCV MCH MCHC RDW Plt Count Neut % (Auto) Lymph % (Auto) [place] % (Auto) Eos % (Auto) Baso % (Auto) Neut # (Auto) Lymph # (Auto) [place] # (Auto) Eos # (Auto) Baso # (Auto) PT INR APTT Sodium Potassium Chloride Carbon Dioxide BUN Creatinine Estimated GFR BUN/Creatinine Ratio Glucose Lactate 1.1 Calcium Total Bilirubin AST ALT Alkaline Phosphatase Total Protein Albumin Globulin Albumin/Globulin Ratio Lipase Procalcitonin Chlamy pneumoniae PCR Not detected Adenovirus (PCR) Not detected B. pertussis DNA (PCR) Not detected B.parapertussis DNA PCR Not detected Coronavirus OC43 (PCR) Not detected Coronavirus HKU1 (PCR) Not detected Coronavirus 229E (PCR) Not detected SARS-CoV-2 (PCR) Negative Not detected Coronavirus NL63 (PCR) Not detected Human Metapneumovir PCR Not detected Influenza Type A (PCR) Not detected Influenza Type B (PCR) Not detected M. pneumoniae (PCR) Not detected Parainfluenza 1 (PCR) Not detected Parainfluenza 2 (PCR) Not detected Parainfluenza 3 (PCR) Not detected Parainfluenza 4 (PCR) Not detected RSV (PCR) Not detected Entero/Rhino (PCR) Not detected Assessment & Plan Assessment & Plan narrative: Tushar Sanabria will be admitted for treatment of a bilateral lower lobe pneumonia that has failed outpatient therapy. Presumed bacterial pneumonia, acute and present on admission -He was administered IV levaquin in the ED. Will start on IV ceftriaxone 1 gram daily and po azithromycin 500 mg daily -Repeat procalcitonin in the am. Acute respiratory failure, present on admission -Start albuterol nebulizers q 6 hours prn alternating with duoneb -Pulmicort nebulizer twice daily -Supplemental oxygen prn per RT VTE prophylaxis: Wells risk score: 1.5 Enoxaparin 40 mg subQ daily Consults: none Patient is admitted under inpatient status with expected length of stay greater than 2 midnights due to severity of presenting symptoms, risk of adverse event, and complexity of treatment plan. FEN: IV saline lock, general diet, CMP and magnesium in the am. Dispo: probable discharge to home in a day or so Code Status: Full code as discussed with patient Scores Wells' Criteria for PE Clinical signs and symptoms of DVT: No PE is #1 Dx or equally likely: No Heart rate > 100: Yes Immobilization at least 3 days or surg in previous 4 weeks: No History of PE or DVT: No Hemoptysis: No Malignancy w/Treatment within 6 months or palliative: No Wells' PE Score total: 1.5 Quality VTE Deep Vein Thrombosis/Pulmonary Embolism Present on Admission: No MIPS - Admit I confirm the patient?s Advance Care Plan is present, Code status is documented, Surrogate decision maker is in patient?s record [If Yes, STOP here]: Yes
[2020-07-13] VITALS (14 sets, daily range): BP systolic 106–134; BP diastolic 73–93; PULSE 68–100; RESP 14–18; TEMP 36.4–38.7; O2SAT 92–98
[2020-07-13 00:17] LABS: Magnesium 2.3 mg/dL (1.6-2.3)
[2020-07-13] MEDS: BENZOCAINE/MENTHOL 1 LOZ PKT 1 EACH PO ×4 (01:13→23:40)
--- NOTE | 2020-07-13 02:00 | PC.NURSE ---
Pt AOx4. Able to speak and understand limited Khmer, but prefers the use of a airplane and engine inspector for first language of German. Able to make needs known in both German and Khmer. Able to ask for airplane and engine inspector when desired, and is aware that translation is available 01/10.
[2020-07-13] MEDS: IBUPROFEN 600 MG TABLET PO (03:18)
[2020-07-13 05:12] LABS: Add Manual Diff / Slide Review NO; Basophils Absolute Auto 0 /uL (0-100); Basophils Percent Auto 0.2 % (0-2); Eosinophils Absolute Auto 0 /uL (0-450); Eosinophils Percent Auto 0.1 % (2-4); Hematocrit 38.9 % (41-53); Hemoglobin 13.6 g/dL (13.5-17.5); Lymphocytes Absolute Auto 700 /uL (1100-4500); Lymphocytes Percent Auto 7.5 % (25-40); Mean Corpuscular HGB Conc 34.9 % (30-36); Mean Corpuscular Hemoglobin 30.3 PG (26-34); Mean Corpuscular Volume 86.8 fL (80-100); Monocytes Absolute Auto 800 /uL (0-900); Monocytes Percent Auto 8.1 % (3-14); Neutrophils Absolute Auto 8300 /uL (1500-7000); Neutrophils Percent Auto 84.1 % (50-75); Platelet Count 233 X10^3/uL (150-400); Red Blood Cell Count 4.48 X10^6/uL (4.5-5.9); Red Cell Distribution Width 12.7 % (11.6-14.8); White Blood Cell Count 9.9 X10^3/uL (4.5-11.0)
[2020-07-13 05:22] LABS: Alanine Aminotransferase 116 IU/L (<50); Albumin 3.2 g/dL (3.5-5.0); Alkaline Phosphatase 155 U/L (38-126); Aspartate Aminotransferase 71 IU/L (17-59); Bilirubin Total 0.7 mg/dL (0.2-1.3); Bilirubin Unconjugated 0.3 mg/dL (0.0-1.1); Globulin 3.2 g/dL (1.7-4.1); HEMOLYSIS < 15 (0-50); Total Protein 6.4 g/dL (6.3-8.2)
[2020-07-13 05:23] LABS: BUN Creatinine Ratio 17.9 (6-22); Blood Urea Nitrogen 15 mg/dL (9-20); Calcium 8.3 mg/dL (8.4-10.2); Carbon Dioxide 24 mmol/L (22-32); Chloride 101 mmol/L (98-107); Estimated Glomerular Filt Rate > 60.0 mL/min (>60); Glucose 133 mg/dL (70-100); HEMOLYSIS < 15 (0-50); Potassium 3.9 mmol/L (3.4-5.1); Sodium 132 mmol/L (137-145)
[2020-07-13 06:30] LABS: Procalcitonin 1.47 ng/mL (<0.5)
[2020-07-13] MEDS: ENOXAPARIN 40 MG/0.4 ML SYRINGE SUBCUT (10:02)
[2020-07-13] MEDS: SODIUM CHLORIDE 0.9% FLUSH 10 ML IV (10:04)
[2020-07-13] MEDS: AZITHROMYCIN 250 MG TABLET 500 MG PO (10:05)
[2020-07-13] MEDS: BUDESONIDE 0.5 MG/2 ML NEB INH ×2 (10:33→19:45)
[2020-07-13] MEDS: ALBUTEROL/IPRATROPIUM 3 ML AMPUL INH (10:33)
--- NOTE | 2020-07-13 12:42 | P.PN_ITS ---
Subjective Subjective Date Patient Seen: 07/13/20 Interval history: The patient is a 55-year-old man who was admitted to the hospital yesterday for acute pneumonia. Patient was febrile to 103, chest x-ray confirmed by lateral hilar infiltrates, he was hypoxic on room air in t achycardic neck. Patient was febrile overnight to 101. He feels significantly improved cough although no longer requires oxygen. Exam Vital Signs (past 8 hours): - 07/13/20 05:18 07/13/20 08:00 07/13/20 10:37 Temperature 98.4 F 98.1 F Pulse Rate 81 86 73 Respiratory Rate 18 17 14 Blood Pressure 106/73 126/81 Pulse Oximetry 95 97 07/13/20 10:38 Temperature Pulse Rate 73 Respiratory Rate 14 Blood Pressure Pulse Oximetry 97 Oxygen Delivery Method Room Air Oxygen Flow Rate 2 Narrative Exam Narrative: Pleasant male resting comfortably in no obvious distress Lungs: Decreased breath sounds with scattered crackles bilaterally Cardiac exam: Regular rate and rhythm normal S1-S2 Abdomen: Nontender nondistended Extremities no edema Objective Labs Result Diagrams: 07/13/20 04:56 07/13/20 04:56 Labs: Laboratory Results - last 24 hr 07/12/20 07/12/20 07/12/20 17:20 17:20 17:20 WBC 9.5 RBC 4.87 Hgb 14.9 Hct 42.3 MCV 86.8 MCH 30.7 MCHC 35.3 RDW 12.7 Plt Count 258 Neut % (Auto) 87.1 H Lymph % (Auto) 5.1 L Sanborn % (Auto) 7.5 Eos % (Auto) 0.1 L Baso % (Auto) 0.2 Neut # (Auto) 8300 H Lymph # (Auto) 500 L Sanborn # (Auto) 700 Eos # (Auto) 0 Baso # (Auto) 0 PT 15.5 H INR 1.4 H APTT 32 Sodium 134 L Potassium 3.9 Chloride 103 Carbon Dioxide 21 L BUN 18 Creatinine 0.90 Estimated GFR > 60.0 BUN/Creatinine Ratio 20.0 Glucose 153 H Lactate Calcium 8.9 Magnesium Total Bilirubin 0.9 Conjugated Bilirubin Unconjugated Bilirubin AST 82 H ALT 130 H Alkaline Phosphatase 161 H D Total Protein 7.1 Albumin 3.7 Globulin 3.4 Albumin/Globulin Ratio 1.1 Lipase 54 Procalcitonin 0.78 H Chlamy pneumoniae PCR Adenovirus (PCR) B. pertussis DNA (PCR) B.parapertussis DNA PCR Coronavirus OC43 (PCR) Coronavirus HKU1 (PCR) Coronavirus 229E (PCR) SARS-CoV-2 (PCR) Coronavirus NL63 (PCR) Human Metapneumovir PCR Influenza Type A (PCR) Influenza Type B (PCR) M. pneumoniae (PCR) Parainfluenza 1 (PCR) Parainfluenza 2 (PCR) Parainfluenza 3 (PCR) Parainfluenza 4 (PCR) RSV (PCR) Entero/Rhino (PCR) 07/12/20 07/12/20 07/12/20 17:20 17:20 17:20 WBC RBC Hgb Hct MCV MCH MCHC RDW Plt Count Neut % (Auto) Lymph % (Auto) Sanborn % (Auto) Eos % (Auto) Baso % (Auto) Neut # (Auto) Lymph # (Auto) Sanborn # (Auto) Eos # (Auto) Baso # (Auto) PT INR APTT Sodium Potassium Chloride Carbon Dioxide BUN Creatinine Estimated GFR BUN/Creatinine Ratio Glucose Lactate 1.1 Calcium Magnesium 2.3 Total Bilirubin Conjugated Bilirubin Unconjugated Bilirubin AST ALT Alkaline Phosphatase Total Protein Albumin Globulin Albumin/Globulin Ratio Lipase Procalcitonin Chlamy pneumoniae PCR Adenovirus (PCR) B. pertussis DNA (PCR) B.parapertussis DNA PCR Coronavirus OC43 (PCR) Coronavirus HKU1 (PCR) Coronavirus 229E (PCR) SARS-CoV-2 (PCR) Negative Coronavirus NL63 (PCR) Human Metapneumovir PCR Influenza Type A (PCR) Influenza Type B (PCR) M. pneumoniae (PCR) Parainfluenza 1 (PCR) Parainfluenza 2 (PCR) Parainfluenza 3 (PCR) Parainfluenza 4 (PCR) RSV (PCR) Entero/Rhino (PCR) 07/12/20 07/13/20 07/13/20 18:20 04:56 04:56 WBC 9.9 RBC 4.48 L Hgb 13.6 Hct 38.9 L MCV 86.8 MCH 30.3 MCHC 34.9 RDW 12.7 Plt Count 233 Neut % (Auto) 84.1 H Lymph % (Auto) 7.5 L Sanborn % (Auto) 8.1 Eos % (Auto) 0.1 L Baso % (Auto) 0.2 Neut # (Auto) 8300 H Lymph # (Auto) 700 L Sanborn # (Auto) 800 Eos # (Auto) 0 Baso # (Auto) 0 PT INR APTT Sodium 132 L Potassium 3.9 Chloride 101 Carbon Dioxide 24 BUN 15 Creatinine 0.84 Estimated GFR > 60.0 BUN/Creatinine Ratio 17.9 Glucose 133 H Lactate Calcium 8.3 L Magnesium Total Bilirubin Conjugated Bilirubin Unconjugated Bilirubin AST ALT Alkaline Phosphatase Total Protein Albumin Globulin Albumin/Globulin Ratio Lipase Procalcitonin 1.47 H Chlamy pneumoniae PCR Not detected Adenovirus (PCR) Not detected B. pertussis DNA (PCR) Not detected B.parapertussis DNA PCR Not detected Coronavirus OC43 (PCR) Not detected Coronavirus HKU1 (PCR) Not detected Coronavirus 229E (PCR) Not detected SARS-CoV-2 (PCR) Not detected Coronavirus NL63 (PCR) Not detected Human Metapneumovir PCR Not detected Influenza Type A (PCR) Not detected Influenza Type B (PCR) Not detected M. pneumoniae (PCR) Not detected Parainfluenza 1 (PCR) Not detected Parainfluenza 2 (PCR) Not detected Parainfluenza 3 (PCR) Not detected Parainfluenza 4 (PCR) Not detected RSV (PCR) Not detected Entero/Rhino (PCR) Not detected 07/13/20 04:56 WBC RBC Hgb Hct MCV MCH MCHC RDW Plt Count Neut % (Auto) Lymph % (Auto) Sanborn % (Auto) Eos % (Auto) Baso % (Auto) Neut # (Auto) Lymph # (Auto) Sanborn # (Auto) Eos # (Auto) Baso # (Auto) PT INR APTT Sodium Potassium Chloride Carbon Dioxide BUN Creatinine Estimated GFR BUN/Creatinine Ratio Glucose Lactate Calcium Magnesium Total Bilirubin 0.7 Conjugated Bilirubin 0.0 Unconjugated Bilirubin 0.3 AST 71 H ALT 116 H Alkaline Phosphatase 155 H Total Protein 6.4 Albumin 3.2 L Globulin 3.2 Albumin/Globulin Ratio 1.0 Lipase Procalcitonin Chlamy pneumoniae PCR Adenovirus (PCR) B. pertussis DNA (PCR) B.parapertussis DNA PCR Coronavirus OC43 (PCR) Coronavirus HKU1 (PCR) Coronavirus 229E (PCR) SARS-CoV-2 (PCR) Coronavirus NL63 (PCR) Human Metapneumovir PCR Influenza Type A (PCR) Influenza Type B (PCR) M. pneumoniae (PCR) Parainfluenza 1 (PCR) Parainfluenza 2 (PCR) Parainfluenza 3 (PCR) Parainfluenza 4 (PCR) RSV (PCR) Entero/Rhino (PCR) [facility] Medical History Alcohol use Patient denies medical problems Surgical History History of kidney surgery Family History Mother Unknown family medical history Father Unknown family medical history Social History marital status: unmarried,single details: Single dad, daughter is 15 years of age number of children: 1 household members: family and children lives independently: Yes housing: house occupational status: employed Smoking Status: Never smoker alcohol intake: current Assessment & Plan Assessment & Plan narrative: Impression 1. 55-year-old male admitted to the hospital with acute pneumonia -patient has defervesced nicely with IV antibiotics -procalcitonin elevated at 1.47 -patient continues to have cough, however hypoxia has improved -it is unclear whether this is a Gram-negative or Gram-positive infection -no evidence of [id number] -respiratory panel negative Plan Continue IV antibiotics Home tomorrow if the patient continues to defervesce and has no further respiratory symptoms Hyponatremia Will continue to monitor close Quality VTE Deep Vein Thrombosis/Pulmonary Embolism Present on Admission: No
[2020-07-13] MEDS: ALBUTEROL 2.5 MG/3 ML NEB (ADULT) INH (14:23)
[2020-07-13] MEDS: ACETAMINOPHEN 325 MG TABLET 650 MG PO (14:36)
--- NOTE | 2020-07-13 14:53 | CM.DANOTE ---
Patient is a 55 yo male who was admitted on 07/12/20 for SOB/ sore throat. Pt has [employer] for insurance and his PCP is not listed. EMR was reviewed. Per MD, pt with hx of ETOH of 3 beers a day without hx of withdrawal or tx and primarily French Speaking and admitted for bilateral lower lobe pneumonia and acute respiratory failure. Pt came to ED and failed outpt oral abx tx but has significantly improved with IV-Abx but still has cough and RT working with pt and may be stable for d/c home with family tomorrow if he continues to improve. SW attempted twice to meet bedside with pt with spanish medical interpreter phone but RT working with pt and he was in the bathroom the other time. Pt lives in [facility] and has local family and 15 yo Dtr and is independent and drives at baseline and is employed. does not anticipate any needs at d/c at this time and plan is to d/c on oral abx. RN has no concerns either. Plan: SW to follow for likely d/c home tomorrow if continues to improve and medically stable. SW to follow for any further identified needs. TROY Frazier Discharge Planning/Care Management CM Discharge Assessment Start: 07/13/20 14:52 Freq: Status: Active Protocol: Document 07/13/20 14:52 BF (Rec: 07/13/20 14:53 BF [id number]) Discharge Planning Assessment Assigned Agricultural Equipment Sales Manager TROY Belle DPOA/Assigned Designee Name none Advance Directives? No Advance Directives on File No History Provided By Patient,Medical Record Has Patient been admitted in last 30 No days? Prior Living Arrangements Apartment/Condo Household Members family,children Type of transporation used prior to Drives own vehicle admit Independent with ADL's Yes Is patient alert and oriented? Yes Caregiver for Another Yes: 15 yo Dtr Barriers to Discharge No Discharge Plan Home Transportation Arrangement Friend or family when stable for d/c Referrals Initiated None needed Review Status In Process Please Provide Date Initial DC 07/13/20 Assessment Was Performed Next Review Type Continued Stay Review
--- NOTE | 2020-07-13 15:36 | PC.NURSE ---
Addendum entered by Natalia Penaloza R.N. 07/13/20 15:39: Pt afebrile until around 1400 when pt temp up to 99.9F oral. Given PRN tylenol. Original Note: Patient SaO2 maintained above 92% on room air, with spot checks in the high 90s. No shortness of breath. Pt did have periodic spasmodic coughing episodes, often after RT treatments. Has been able to expectorate a mild amount of thick, white sputum after treatments. Pt had an episode of mild epistaxis around 1100, but bleeding stopped within 10 minutes. Other vital signs stable, pt tolerating diet well. Given throat lozenges for sore throat. Crackles noted to lung bases.
[2020-07-13] MEDS: CEFTRIAXONE 1 GM/50 ML FROZ.PIGGY IV (20:09)
[2020-07-13] MEDS: SODIUM CHLORIDE 0.9% 250 ML 21 ML IV (20:18)
[2020-07-14] VITALS (13 sets, daily range): BP systolic 124–136; BP diastolic 84–91; PULSE 85–99; RESP 16–18; TEMP 36.3–37.6; O2SAT 89–96
[2020-07-14] MEDS: ALBUTEROL 2.5 MG/3 ML NEB (ADULT) INH (00:52)
--- NOTE | 2020-07-14 01:09 | RT ---
Paged by RN to add humidification to pt's NC. Pt was tachypneic, RR 22, 4 LPM NC SpO2 93%, BS fine crackles in bases and RML. Gave pt PRN albuterol at 0052. Crackles resolved in bases and RML, SpO2 93% on 4 LPM NC still. RN aware.
--- NOTE | 2020-07-14 02:32 | PC.NURSE ---
patient is alert and oriented. Speaks mostly Persian but is able to make needs known; have housing management representative phone to utilize as needed. Breath sounds with inspiratory crackles bilateral mid/lower lobes. Respirations are shallow and does state he feels SOB. On RA and sat only 89-90% and order is to keep > 94% so placed back on oxygen. Lucio EISENBERG, informed of sat as needing to increase to 5L/min and still not > 94%; new order to keep > 92%. RT here to eval and give nebulizer Rx. Now patient is on oxygen at 4L/min with sat of 93%. Does have some blood tinged nasal discharge/sputum so humidifier added to oxygen for comfort. Complains of sore throat and was provided a Cepacol lozenge. HRR. Denies nausea. BT present and abdomen is soft. Denies dysuria, frequency or urgency with urination; using urinal in bed. Reportedly is out of bed with SBA. Fall risk score is moderate and bed alarm is activated.
[2020-07-14 06:05] LABS: BUN Creatinine Ratio 11.7 (6-22); Blood Urea Nitrogen 9 mg/dL (9-20); Calcium 9.1 mg/dL (8.4-10.2); Carbon Dioxide 24 mmol/L (22-32); Chloride 101 mmol/L (98-107); Estimated Glomerular Filt Rate > 60.0 mL/min (>60); Glucose 254 mg/dL (70-100); HEMOLYSIS 23 (0-50); Sodium 132 mmol/L (137-145)
[2020-07-14 06:09] LABS: Potassium 5.4 mmol/L (3.4-5.1)
[2020-07-14 06:32] LABS: Procalcitonin 0.16 ng/mL (<0.5)
--- NOTE | 2020-07-14 07:48 | DI.RAD.S_ITS ---
PROCEDURE: XR CHEST 2V INDICATIONS: r/o infiltrate TECHNIQUE: 2 views of the chest were acquired. COMPARISON: [facility], CR, XR CHEST 1V, 07/12/2020, 17:37. [facility], CR, XR CHEST 1V, 07/09/2020, 5:09. FINDINGS: Surgical changes and devices: None. Lungs and pleura: Lungs are abnormal with a bilateral relatively prominent pattern of alveolar infiltration at the mid and lower lungs bilaterally and also to a lesser degree the upper lobes bilaterally.. No pleural effusions or pneumothorax. Mediastinum: Mediastinal contours are normal. Heart size is normal. Bones and chest wall: No suspicious bony abnormalities. Soft tissues appear unremarkable. IMPRESSION: The airspace disease present is not associated with cardiomegaly and for this reason atypical/viral pneumonia would be suspected. No pleural effusion is seen. The disease process has significantly worsened. Dictated by: Wes Jacome M.D. on 07/14/2020 at 8:33 Approved by: Wes Jacome M.D. on 07/14/2020 at 8:35
[2020-07-14] MEDS: BUDESONIDE 0.5 MG/2 ML NEB INH ×2 (07:50→19:59)
[2020-07-14] MEDS: ENOXAPARIN 40 MG/0.4 ML SYRINGE SUBCUT (09:46)
[2020-07-14] MEDS: SODIUM CHLORIDE 0.9% FLUSH 10 ML IV ×2 (09:46→20:41)
[2020-07-14] MEDS: AZITHROMYCIN 250 MG TABLET 500 MG PO (09:46)
--- NOTE | 2020-07-14 11:59 | PM.PN.1 ---
Subjective Subjective Date Patient Seen: 07/14/20 Interval history: The patient is a 55-year-old male who was admitted to the hospital for probable bacterial pneumonia. The patient continues to be short of breath at rest. His room air oxygen saturation is 88-89%. He has had improvement in his fever. He has minimal cough. He feels better however when he ambulates he gets markedly short of breath. Exam Vital Signs (past 8 hours): - 07/14/20 05:13 07/14/20 07:50 07/14/20 07:55 Temperature 98.0 F Pulse Rate 98 H 92 H Respiratory Rate 18 18 Blood Pressure 124/90 Pulse Oximetry 95 91 94 07/14/20 08:02 07/14/20 08:35 Temperature 97.3 F L Pulse Rate 99 H Respiratory Rate 17 Blood Pressure 136/91 H Pulse Oximetry 94 92 Oxygen Delivery Method Nasal Cannula Oxygen Flow Rate 2 Narrative Exam Narrative: Pleasant gentleman resting comfortably Lungs: Bilateral crackles throughout both lung murguia Cardiac exam: Regular rate and rhythm normal S1-S2 Abdomen soft nontender nondistended without hepatosplenomegaly Extremities: No edema Objective Labs Result Diagrams: 07/13/20 04:56 07/14/20 05:12 Labs: Laboratory Results - last 24 hr 07/14/20 07/14/20 05:12 05:12 Sodium 132 L Potassium 5.4 H D Chloride 101 Carbon Dioxide 24 BUN 9 Creatinine 0.77 Estimated GFR > 60.0 BUN/Creatinine Ratio 11.7 Glucose 254 H D Calcium 9.1 Procalcitonin 0.16 PFSH Medical History Alcohol use Patient denies medical problems Surgical History History of kidney surgery Family History Mother Unknown family medical history Father Unknown family medical history Social History marital status: unmarried,single details: Single dad, daughter is 15 years of age number of children: 1 household members: family and children lives independently: Yes housing: house occupational status: employed Smoking Status: Never smoker alcohol intake: current Assessment & Plan Assessment & Plan narrative: 1. Acute hypoxic respiratory failure -patient remains hypoxic at rest with O2 sat of 88-89% -he is markedly short of breath with minimal exertion -chest x-ray confirms bilateral alveolar infiltrates -procalcitonin elevated at 1.47 -continue nebulizers and oxygen 2. Pneumonia probable bacterial -continue ceftriaxone and azithromycin -continue oxygen as needed -home when no longer hypoxic 3. Hyperglycemia -questions stress response versus new onset diabetes -will obtain hemoglobin A1c and continue to monitor Quality VTE Deep Vein Thrombosis/Pulmonary Embolism Present on Admission: No
--- NOTE | 2020-07-14 13:04 | CM.DPC ---
DCP: continued: Met with pt during Team Rounds and then stayed on afterwards for a short discussion. Pt's primary language is Irish but he does also speak German. He confirms that he lives here in [place] in an apartment with his daughter. He understands from Dr. Dior that he will need to be here another night as he is improving but not yet to point where he is stable to leave the hospital. He says he is comfortable with this plan. When ready for d/c he says either a friend will come to pick him up or he will take a taxi. No concerns at this time are noted re the d/c. Admission status: INPT: confirmed by UR SIMBA Stevenson Payer: [facility].
[2020-07-14 13:25] LABS: Hemoglobin A1C% w Est Avg Glu 7.7 % (4.0-6.0)
--- NOTE | 2020-07-14 15:06 | PC.NURSE ---
Patient was up in the room and de-saturates while ambulating, pt get's down to 88%, feels light headed and dizzy. Lung sounds coarse crackles throughout. Temp is not elevated on this shift. VSS.
[2020-07-14] MEDS: CEFTRIAXONE 1 GM/50 ML FROZ.PIGGY IV (20:41)
--- NOTE | 2020-07-15 01:40 | PC.NURSE ---
Addendum entered by Joana Lewis R.N. 07/15/20 06:26: Has been maintain sat at 93% on oxygen at 3L/min per NC during the night while asleep. Stood at bedside this morning to void and when first sitting on edge of bed O2 sat does drop down to 88% initially and then up to 90% with some coughing noted and patient states he does feel SOB. Once back in bed sat up to 92% within 1 minute recovery. Original Note: patient is alert and oriented; Chadian speaking but is able to understand and make his needs known. Breath sounds with both inspiratory/expiratory crackles more coarse in lower lobes. States still SOB with exertion. On oxygen at 3L/min per NC with sat of 93%. HRR. Denies nausea. BT present and abdomen is soft. Denies dysuria, frequency or urgency with urination. Is able to turn himself in bed. Gait not assessed at this time. Denies pain. Fall risk score is moderate but verbalizes he will call for assistance if wanting to get out of bed so alarm is not currently in use.
[2020-07-15 07:00] VITALS: BP 126/87; PULSE 87; RESP 20; TEMP 36.4; O2SAT 92
[2020-07-15 07:40] VITALS: O2SAT 91
[2020-07-15 08:33] VITALS: PULSE 86; RESP 20; O2SAT 92
[2020-07-15] MEDS: BUDESONIDE 0.5 MG/2 ML NEB INH ×2 (08:33→20:06)
[2020-07-15] MEDS: AZITHROMYCIN 250 MG TABLET 500 MG PO (08:42)
[2020-07-15] MEDS: ENOXAPARIN 40 MG/0.4 ML SYRINGE SUBCUT (08:44)
[2020-07-15] MEDS: SODIUM CHLORIDE 0.9% FLUSH 10 ML IV ×2 (08:44→19:48)
[2020-07-15 12:07] VITALS: BP 127/87; PULSE 90; RESP 18; TEMP 36.3; O2SAT 92
--- NOTE | 2020-07-15 12:53 | DI.CT.S_ITS ---
PROCEDURE: CT CHEST W CON INDICATIONS: evaluate hypoxia TECHNIQUE: After the administration of intravenous contrast, 5 mm thick sections acquired from the pulmonary apices to the posterior costophrenic angles. 1 mm axial lung, 5 mm thick coronal and sagittal reformats and 7 mm axial MIP were acquired. For radiation dose reduction, the following was used: automated exposure control, adjustment of mA and/or kV according to patient size. COMPARISON: [facility], CR, XR CHEST 1V, 07/12/2020, 17:37. [facility], CR, XR CHEST 2V, 07/14/2020, 8:01. FINDINGS: Image quality: Excellent. Lungs and pleura: Bilateral airspace infiltrates the consistent with pneumonia. There are bilateral lower lobe consolidations. No pleural effusions or pneumothorax. Central and peripheral airways are patent and normal in caliber. Mediastinum: Heart size is normal. No pericardial effusion. Small mediastinal lymph nodes are likely reactive. Thoracic aorta and central pulmonary arteries are normal in size. Esophagus is normal in caliber. No hiatal hernia. Bones and chest wall: No suspicious bony lesions. No vertebral body compression fractures. No axillary or supraclavicular adenopathy by size criteria. Thyroid gland is normal. Abdomen: Visualized upper abdominal solid organs appear normal. Upper abdominal bowel loops are normal in caliber. IMPRESSION: 1. Bilateral pneumonia predominantly involving lower lobes. Dictated by: Nate Banegas M.D. on 07/15/2020 at 13:50 Approved by: Nate Banegas M.D. on 07/15/2020 at 13:59
--- NOTE | 2020-07-15 13:24 | PC.NURSE ---
Day shift note: Patient awake, alert, and cooperative. Received on O2 at 3L via NC, sats 91-92%. Mild SOB at rest, worse with activity. Speaking in short sentences. OFF floor to CT scan at 1320 with O2. Coarse/Crackles bilaterally, left > right. Sporadic non productive cough. Afebrile/VSS. Return from CT scan at 1328. Calls appropriately for staff assist.
--- NOTE | 2020-07-15 15:55 | PM.PN.1 ---
Subjective Subjective Date Patient Seen: 07/15/20 Interval history: Patient is a 55-year-old male admitted to the hospital for pneumonia. Patient was febrile with cough shortness of breath and hypoxia. He remains hypoxic. With activity he desaturates to 88 89%. Patient becomes quite winded. Patient does report history of TB in the past. He apparently started treatment but did not continue his treatment for TB. Exam Vital Signs (past 8 hours): - 07/15/20 08:33 07/15/20 12:07 Temperature 97.3 F L Pulse Rate 86 90 Respiratory Rate 20 18 Blood Pressure 127/87 Pulse Oximetry 92 92 Oxygen Delivery Method Nasal Cannula Oxygen Flow Rate 3 Narrative Exam Narrative: Pleasant gentleman resting comfortably Lungs decreased breath sounds with bibasilar crackles bilaterally Cardiac exam regular rate and rhythm normal S1-S2 Abdomen soft nontender nondistended Extremity no edema Objective Labs Result Diagrams: 07/13/20 04:56 07/14/20 05:12 [facility] Medical History (Updated 07/15/20 @ 11:58 by Arminda Hunt RN) Alcohol use Patient denies medical problems Tuberculosis Surgical History History of kidney surgery Family History Mother Unknown family medical history Father Unknown family medical history Social History marital status: unmarried,single details: Single dad, daughter is 15 years of age number of children: 1 household members: family and children lives independently: Yes housing: house occupational status: employed Smoking Status: Never smoker alcohol intake: current Assessment & Plan Assessment & Plan narrative: Acute hypoxic respiratory failure -patient remains hypoxic at rest with O2 sat of 88-89% -he is markedly short of breath with minimal exertion -chest x-ray confirms bilateral alveolar infiltrates -procalcitonin elevated at 1.47 -continue nebulizers and oxygen -Chest CT confirms bilateral pneumonia in the lower lobes -continue IV antibiotics 2. Pneumonia probable bacterial -continue ceftriaxone and azithromycin -continue oxygen as needed -home when no longer hypoxic 3. Hyperglycemia, -questions stress response versus new onset diabetes -will obtain hemoglobin A1c and continue to monitor -hgb AIC 7.7 confirms Diabetes -will start Metformin 500 mg twice daily Home when no longer hypoxic Quality VTE Deep Vein Thrombosis/Pulmonary Embolism Present on Admission: No
[2020-07-15 16:10] VITALS: BP 129/94; PULSE 78; RESP 14; TEMP 36.6; O2SAT 95
--- NOTE | 2020-07-15 16:22 | PC.NURSE ---
Addendum entered by Urmila Toussaint R.N. 07/15/20 17:53: Pt now fully awake for evening meal. Voiding per urinal clear, yellow urine. Pt denies pain. Occasional unproductive cough. Continuous pulse oximeter in place. Oxygen @ 3L/min per NC. Coarse crackles to posterior murguia BL. Deep breathing elicits cough. Original Note: Pt resting quietly in bed with eyes closed. Oxygen cannula in place and continuous monitor reads 95%. No signs of distress or discomfort observed.
[2020-07-15] MEDS: METFORMIN HCL 500 MG TABLET PO (17:24)
[2020-07-15] MEDS: CEFTRIAXONE 1 GM/50 ML FROZ.PIGGY IV (19:48)
[2020-07-15 20:07] VITALS: PULSE 88; RESP 22; O2SAT 91
[2020-07-16] VITALS (12 sets, daily range): BP systolic 110–141; BP diastolic 72–81; PULSE 83–95; RESP 16–18; TEMP 36.5–36.7; O2SAT 87–94
[2020-07-16] MEDS: METFORMIN HCL 500 MG TABLET PO ×2 (09:15→17:04)
[2020-07-16] MEDS: ENOXAPARIN 40 MG/0.4 ML SYRINGE SUBCUT (09:16)
[2020-07-16] MEDS: AZITHROMYCIN 250 MG TABLET 500 MG PO (09:16)
[2020-07-16] MEDS: SODIUM CHLORIDE 0.9% FLUSH 10 ML IV ×2 (09:17→20:43)
[2020-07-16] MEDS: BUDESONIDE 0.5 MG/2 ML NEB INH ×2 (09:24→20:03)
--- NOTE | 2020-07-16 13:20 | P.PN_ITS ---
Subjective Subjective Date Patient Seen: 07/16/20 Time Patient Seen: 13:20 Interval history: Patient is a 55-year-old male admitted to the hospital for pneumonia. Patient was febrile with cough shortness of breath and hypoxia. He remains hypoxic. With activity he desaturates to 86% today and desatruates to 89% on room air at rest today. Continues on antibiotic therapy but is beginning to feel a bit better today. Denies chest pain but does complain of orthopnea. No nausea or vomiting. Has been afebrile since 07/13. Exam Vital Signs (past 8 hours): - 07/16/20 07:00 07/16/20 08:09 07/16/20 09:24 Pulse Rate 83 92 H Respiratory Rate 18 16 Blood Pressure 110/72 Pulse Oximetry 91 92 92 07/16/20 09:29 07/16/20 09:30 Pulse Rate Respiratory Rate Blood Pressure Pulse Oximetry 87 L 92 Oxygen Delivery Method Nasal Cannula Oxygen Flow Rate 3 Narrative Exam Narrative: Gen: Alert, oriented, well-developed 55 y.o. Hispanicmale, NAD HEENT: normocephalic, atraumatic, conjunctiva clear, sclera non-icteric, oral mucosa pink and moist Neck: supple, full ROM, no JVD, trachea is midline Resp: bilateral crackles to mid lung, no wheezing. upper lobes CTA b/l. CV: RRR, no murmur or rubs Abd: soft, non-tender, normoactive BTs Skin: no lesions or rashes, dry and intact Neuro: Alert and oriented X 4 w/no focal deficits. Speech clear and coherent. Extremities: moves all 4 extremities, is ambulatory, negative Kaylynn?s sign Psyche: normal mood and affect. Objective Labs Result Diagrams: 07/13/20 04:56 07/14/20 05:12 [facility] Medical History (Updated 07/15/20 @ 11:58 by Arminda Hunt RN) Alcohol use Patient denies medical problems Tuberculosis Surgical History History of kidney surgery Family History Mother Unknown family medical history Father Unknown family medical history Social History marital status: unmarried,single details: Single dad, daughter is 15 years of age number of children: 1 household members: family and children lives independently: Yes housing: house occupational status: employed Smoking Status: Never smoker alcohol intake: current Assessment & Plan Assessment & Plan narrative: Patient is a 55-year-old male admitted to the hospital for pneumonia and acute hypoxic respiratory failure. 1. Acute hypoxic respiratory failure -patient remains hypoxic at rest with O2 sat of 88-89%, with ambulation desaturations noted to 86% today. -he is markedly short of breath with minimal exertion -chest x-ray confirms bilateral alveolar infiltrates, Chest CT confirms bilateral pneumonia in the lower lobes -procalcitonin elevated at 1.47, now improved to normal. Patient with prior latent TB, given improvement in procalcitonin and current clinical data, TB is considered very unlikely at this time. -continue nebulizers and oxygen -continue IV antibiotics, although given lack of improvement thus far consider non-infectious etiologies. Will order TTE given reports of orthopnea and continued hypoxia to rule out cardiac etiology. 2. Pneumonia probable bacterial -continue ceftriaxone and azithromycin -continue oxygen as needed -home when no longer hypoxic 3. Type II diabetes, new diagnosis. -questions stress response versus new onset diabetes -hgb AIC 7.7 confirms Diabetes -patient started on Metformin 500 mg twice daily\ Code: Full Dispo: remains inpatient, can discharge home when no longer on supplemental O2. DVT: Lovenox daily Quality VTE Deep Vein Thrombosis/Pulmonary Embolism Present on Admission: No
--- NOTE | 2020-07-16 13:26 | DI.ECHO.S_ITS ---
[place] [facility]---------+ [facility] +---------+ : : [address] : : : : [id number] : : : : Phone: [phone]+ Echocardiogram Report + + :Name: BLUE MCRAE Study Date: 07/17/2020 Height: 62 in : :[facility] ReadingLocation: Weight: 155 lb : : Gender: Male BSA: 1.7 m2 : :: 1965 Age: 55 yrs BP: 136/84 mmHg: :Reason For Study: SOB : :Ordering Physician: COLEEN, : :KODAK BARILLAS Performed By: Alejo Victoria : :Referring: KODAK HORNE : + + Interpretation Summary 1) Normal left ventricular thickness, size, wall motion, and systolic function (EF 60-65%). 2) Normal right ventriuclar size and function. 3) No significant valvular abnormalities. 4) No prior Echo available for comparison. Procedure: A two-dimensional transthoracic echocardiogram with color flow and Doppler was performed. The study quality was technically adequate. There is no prior echocardiogram noted for this patient. The patient was in sinus rhythm with heart rates between 78-85 bpm during the exam. Left Ventricle: The left ventricle is normal in size and wall thickness. Left ventricular systolic function is normal. The ejection fraction is estimated to be 60-65%. There are no focal wall motion abnormalities. Diastolic parameters suggest probable normal left ventricular diastolic function and normal filling pressures. Right Ventricle: The right ventricle is normal in size and function. Atria: Both atria are normal in size. There is no Doppler evidence for an interatrial shunt. Mitral Valve: The mitral valve is normal in structure and function. There is no mitral regurgitation noted. Aortic Valve: The aortic valve is normal in structure and function. There is no aortic valve stenosis. No aortic regurgitation is present. Tricuspid Valve: The tricuspid valve is normal in structure and function. No tricuspid regurgitation. Pulmonary artery pressures cannot be estimated because of the lack of a measurable TR jet velocity. Pulmonic Valve: The pulmonic valve is not well seen, but is grossly normal. There is no pulmonic valvular regurgitation. Great Vessels: The aortic root is normal size. The dimensions of the ascending aorta are normal. The IVC was not well visualized secondary to technical limitations making central venous pressures difficult to estimate. Pericardium/ Pleura There is no pericardial effusion. There is no pleural effusion. MMode/2D Measurements & Calculations LVIDd: 4.2 cm LVOT diam: 2.0 cm LVIDs: 2.7 cm Ao root diam: 3.0 cm FS: 36.4 % asc Aorta Diam: 2.9 cm IVSd: 0.94 cm LVPWd: 0.97 cm LV [place]. diameter/BSA (cm/m^2): 2.5 LV sys. diameter/BSA (cm/m^2): 1.6 LA A2 area: 9.5 cm2 RA long axis: 3.8 cm LA A4 area: 14.3 cm2 RA area: 7.4 cm2 LA length (vol): 5.0 cm RA vol: 12.4 ml LA vol: 23.1 ml RA : 7.2 ml/m2 LA vol index: 13.5 ml/m2 TAPSE: 2.4 cm Doppler Measurements & Calculations Ao V2 max: 111.5 cm/sec LVOT Max Christiano: 100.6 cm/sec Ao V2 mean: 78.2 cm/sec LV V1 max P.1 mmHg Ao max P.0 mmHg LV V1 VTI: 17.2 cm Ao mean P.8 mmHg TL(I,D): 2.8 cm2 Ao V2 VTI: 18.9 cm TL(V,D): 2.8 cm2 sev ratio: 0.91 TL indexed to BSA (cm^2/m^2): 1.6 MV E max christiano: 65.0 cm/sec PA pr(Accel): 38.8 mmHg MV A max christiano: 62.4 cm/sec MV E/A: 1.0 Med Peak E' Christiano: 6.6 cm/sec E/E' med: 9.8 Lat Peak E' Christiano: 10.0 cm/sec E/E' lat: 6.5 E/e' average: 8.1 MV dec time: 0.19 sec SV(LVOT): 53.1 ml Reading Physician:10:29 AM
[2020-07-16] MEDS: CEFTRIAXONE 1 GM/50 ML FROZ.PIGGY IV (20:43)
[2020-07-17] VITALS (10 sets, daily range): BP systolic 101–136; BP diastolic 75–84; PULSE 84–90; RESP 16–20; TEMP 36.3–36.8; O2SAT 92–95
[2020-07-17] MEDS: BUDESONIDE 0.5 MG/2 ML NEB INH ×2 (08:13→21:17)
--- NOTE | 2020-07-17 09:25 | P.PN_ITS ---
Subjective Subjective Date Patient Seen: 07/17/20 Time Patient Seen: 09:25 Interval history: Patient is a 55-year-old male admitted to the hospital for pneumonia. Patient was febrile with cough shortness of breath and hypoxia. Desatruates to 89% on room air at rest today. Improved on 1L only now, down from 3. Still feels shortness of breath, mild cough today but no fevers, chills, nausea, or vomiting. Denies chest pain. He is tolerating a diet. TTE pending t jocelyn to evaluate for possible cardiac source of continued hypoxia. Exam Vital Signs (past 8 hours): - 07/17/20 08:15 Pulse Rate 84 Respiratory Rate 16 Pulse Oximetry 95 Oxygen Delivery Method Nasal Cannula Oxygen Flow Rate 2 Narrative Exam Narrative: Gen: Alert, oriented, well-developed 55 y.o. male, NAD HEENT: normocephalic, atraumatic, conjunctiva clear, sclera non-icteric, oral mucosa pink and moist Neck: supple, full ROM, no JVD, trachea is midline Resp: bilateral crackles in lower lungs, no wheezing. upper lobes CTA b/l. CV: RRR, no murmur or rubs Abd: soft, non-tender, normoactive BTs Skin: no lesions or rashes, dry and intact Neuro: Alert and oriented X 4 w/no focal deficits. Speech clear and coherent. Extremities: moves all 4 extremities, is ambulatory, negative Kaylynn?s sign Psyche: normal mood and affect. Objective Labs Result Diagrams: 07/13/20 04:56 07/14/20 05:12 [facility] Medical History (Updated 07/15/20 @ 11:58 by Arminda Hunt RN) Alcohol use Patient denies medical problems Tuberculosis Surgical History History of kidney surgery Family History Mother Unknown family medical history Father Unknown family medical history Social History marital status: unmarried,single details: Single dad, daughter is 15 years of age number of children: 1 household members: family and children lives independently: Yes housing: house occupational status: employed Smoking Status: Never smoker alcohol intake: current Assessment & Plan Assessment & Plan narrative: Patient is a 55-year-old male admitted to the hospital for pneumonia and acute hypoxic respiratory failure, he is slow to improve. 1. Acute hypoxic respiratory failure, active -patient remains hypoxic at rest with O2 sat of 88-89%, with ambulation desaturations noted to 86% -he remains markedly short of breath with minimal exertion -chest x-ray confirms bilateral alveolar infiltrates, Chest CT confirms bilateral pneumonia in the lower lobes, no PE. -procalcitonin elevated at 1.47, now improved to normal. Patient with prior latent TB, given improvement in procalcitonin and current clinical data, TB is considered very unlikely at this time. -continue nebulizers and oxygen -continue IV antibiotics, although given lack of improvement thus far consider non-infectious etiologies. Will order TTE given reports of orthopnea and continued hypoxia to rule out cardiac etiology. 2. Pneumonia, acute, probable bacterial -continue ceftriaxone and azithromycin -continue oxygen as needed -plan for home when no longer hypoxic 3. Type II diabetes, new diagnosis. -hgb AIC 7.7 confirms Diabetes -patient started on Metformin 500 mg twice daily Code: Full Dispo: remains inpatient, can discharge home when no longer on supplemental O2. DVT: Lovenox daily Quality VTE Deep Vein Thrombosis/Pulmonary Embolism Present on Admission: No
[2020-07-17] MEDS: ENOXAPARIN 40 MG/0.4 ML SYRINGE SUBCUT (09:34)
[2020-07-17] MEDS: METFORMIN HCL 500 MG TABLET PO ×2 (09:34→17:12)
[2020-07-17] MEDS: SODIUM CHLORIDE 0.9% FLUSH 10 ML IV ×2 (09:34→19:51)
[2020-07-17] MEDS: AZITHROMYCIN 250 MG TABLET 500 MG PO (09:34)
--- NOTE | 2020-07-17 13:16 | CM.DPC ---
Addendum entered by Amira Valencia R.N. 07/17/20 15:09: Met with patient in his room. Introduced self and role. He is alert and oriented, pleasant. He confirmed that he does have a primary care provider, Dr. Adames in [facility]. He stated, he is now down to 1 liter of oxygen. He also indicated that he does have a friend that can pick him up upon discharge. Original Note: DCP Cont: Checked in with patient during team round, pleasant. He was still in bed, but the goal is to get him up and see how he does with his oxygenation. He does not have a current PCP, will be giving him resources for providers in this area. He is independent at his baseline, so the plan is for home when he is medically stable. P: DCP to continue to follow. Plan is for home when stable. Amira Valencia RN/Budget And Policy Analyst
--- NOTE | 2020-07-17 16:16 | PC.NURSE ---
Addendum entered by Urmila Toussaint R.N. 07/17/20 22:12: Reports occasional productive cough with white sputum. Interested in diabetic diet information and was provided with dietary guidelines for diabetics from cdc website in danish. Addendum entered by Urmila Toussaint R.N. 07/17/20 19:43: Pt up in room with oxygen in place. 93% upon return to bed. Addendum entered by Urmila Toussaint R.N. 07/17/20 17:44: Pt has questions about diabetes and metformin. Provided pt with printed materials in Urdu as per [facility] for diabetes type two and metformin. Pt states this information is helpful/useful. Original Note: Pt resting quietly in bed. 02 @ 1L per NC with continuous pulse oximeter in place 92%. Has acapella @ bedside and states is using every hour. Coarse breath sounds with scattered crackles L > R to posterior lung murguia. Clear anteriorly BL. Pt reports cough has lessened and denies producing sputum. Pt denies pain.
[2020-07-17] MEDS: CEFTRIAXONE 1 GM/50 ML FROZ.PIGGY IV (19:51)
[2020-07-18] VITALS (10 sets, daily range): BP systolic 95–112; BP diastolic 71–81; PULSE 83–92; RESP 14–18; TEMP 35.9–36.6; O2SAT 90–96
--- NOTE | 2020-07-18 02:12 | PC.NURSE ---
patient is alert and oriented. Breath sounds still with inspiratory crackles in bilateral mid and lower lobes. States he has occasional cough nonproductive. Is on oxygen at 1L/min per NC with sat of 94%. HRR. Denies nausea. BT present and is passing flatus; reports having had BM on Saturday. Denies dysuria, frequency or urgency with urination; stands at bedside with walker and SBA to use urinal. Is able to turn himself in bed. Denies pain. Fall risk score is high and bed alarm is activated.
[2020-07-18] MEDS: METFORMIN HCL 500 MG TABLET PO ×2 (09:02→17:37)
[2020-07-18] MEDS: ENOXAPARIN 40 MG/0.4 ML SYRINGE SUBCUT (09:02)
[2020-07-18] MEDS: SODIUM CHLORIDE 0.9% FLUSH 10 ML IV ×2 (09:03→20:16)
[2020-07-18] MEDS: AZITHROMYCIN 250 MG TABLET 500 MG PO (09:03)
--- NOTE | 2020-07-18 09:05 | DI.RAD.S_ITS ---
PROCEDURE: XR CHEST 1V INDICATIONS: SOB TECHNIQUE: One view of the chest was acquired. COMPARISON: [facility], CR, XR CHEST 2V, 07/14/2020, 8:01. FINDINGS: Surgical changes and devices: None. Lungs and pleura: There is improved aeration in the medial right lower lobe and the left lung base since 07/14/20. No definite new focal consolidation. No pleural effusions or pneumothorax. Lung volumes low. Mediastinum: Mediastinal contours appear normal. Heart size is normal. Bones and chest wall: No suspicious bony lesions. Overlying soft tissues appear unremarkable. IMPRESSION: Improved aeration of both lower lobes, with persistent low lung volumes since 07/14/20. Recommend continued follow-up to document complete resolution and exclude underlying pulmonary nodule. No new focal consolidation Dictated by: Guillermo Valdes M.D. on 07/18/2020 at 9:55 Approved by: Guillermo Valdes M.D. on 07/18/2020 at 9:57
[2020-07-18] MEDS: BUDESONIDE 0.5 MG/2 ML NEB INH ×2 (09:26→20:50)
--- NOTE | 2020-07-18 11:42 | CM.DPC ---
DCP Cont: Per MD, pt trialing room air but continues to desat so ordering chest xray today and not quite stable for d/c yet today but potentially Tu or Wed pending xray results. Pt just responding slowly to Abx but plan is still home with family and transport via friend when stable for discharge. Plan: SW to follow after chest xray towards confirming plan of return home when stable. Likely no needs but follow for any further identified discharge planning needs. TROY Frazier
--- NOTE | 2020-07-18 14:33 | PC.NURSE ---
Patient ambulated in hallway with walker and SBA for safety. Maintained O2 sat of 88-92% on RA and HR of 105-110s. Patient denies any SOB, dizziness, or pain during ambulation.
--- NOTE | 2020-07-18 16:29 | P.PN_ITS ---
Subjective Subjective Date Patient Seen: 07/18/20 Time Patient Seen: 08:29 Interval history: He feels that he is improving with his symptoms of shortness of breath. However still on oxygen and does get short of breath with activity. Exam Vital Signs (past 8 hours): - 07/18/20 08:39 07/18/20 09:26 07/18/20 10:57 Temperature 97.5 F L 96.6 F L Pulse Rate 83 88 92 H Respiratory Rate 14 16 14 Blood Pressure 95/71 110/76 Pulse Oximetry 91 93 90 L 07/18/20 11:20 07/18/20 12:30 Temperature 97.6 F Pulse Rate 92 H Respiratory Rate 14 Blood Pressure 110/76 Pulse Oximetry 90 L 92 Oxygen Delivery Method Room Air Oxygen Flow Rate 0 Narrative Exam Narrative: Gen: Alert, oriented, well-developed 55 y.o. male, NAD HEENT: normocephalic, atraumatic, conjunctiva clear, sclera non-icteric, oral mucosa pink and moist Neck: supple, full ROM, no JVD, trachea is midline Resp: bilateral crackles in lower lungs, no wheezing. upper lobes CTA b/l. CV: RRR, no murmur or rubs Abd: soft, non-tender, normoactive BTs Skin: no lesions or rashes, dry and intact Neuro: Alert and oriented X 4 w/no focal deficits. Speech clear and coherent. Extremities: moves all 4 extremities, is ambulatory, negative Kaylynn?s sign Psyche: normal mood and affect. Objective Labs Result Diagrams: 07/13/20 04:56 07/14/20 05:12 [facility] Medical History (Updated 07/15/20 @ 11:58 by Arminda Hunt RN) Alcohol use Patient denies medical problems Tuberculosis Surgical History History of kidney surgery Family History Mother Unknown family medical history Father Unknown family medical history Social History marital status: unmarried,single details: Single dad, daughter is 15 years of age number of children: 1 household members: family and children lives independently: Yes housing: house occupational status: employed Smoking Status: Never smoker alcohol intake: current Assessment & Plan Assessment & Plan narrative: Patient is a 55-year-old male admitted to the hospital for pneumonia and acute hypoxic respiratory failure, he is slow to improve. 1. Acute hypoxic respiratory failure, active -patient remains hypoxic at rest with O2 sat of 88-89%, with ambulation desaturations noted to 86% -he remains short of breath with minimal exertion -chest x-ray confirms bilateral alveolar infiltrates, Chest CT confirms bilateral pneumonia in the lower lobes, no PE. repeat xray shows improving pneumonia -procalcitonin elevated at 1.47, now improved to normal. Patient with prior latent TB, given improvement in procalcitonin and current clinical data, TB is considered very unlikely at this time. -continue nebulizers and oxygen -continue IV antibiotics, although given lack of improvement thus far consider non-infectious etiologies. -echo ordered given slow respiratory improvement with no significant abnormalities 2. Pneumonia, acute, probable bacterial -continue ceftriaxone and azithromycin -continue oxygen as needed -plan for home when no longer hypoxic 3. Type II diabetes, new diagnosis. -hgb AIC 7.7 confirms Diabetes -patient started on Metformin 500 mg twice daily Code: Full Dispo: remains inpatient, can discharge home when no longer on supplemental O2. DVT: Lovenox daily Quality VTE Deep Vein Thrombosis/Pulmonary Embolism Present on Admission: No
[2020-07-18 19:46] LABS: Hematocrit 48.4 % (41-53); Hemoglobin 16.7 g/dL (13.5-17.5); Mean Corpuscular HGB Conc 34.4 % (30-36); Mean Corpuscular Hemoglobin 30.2 PG (26-34); Mean Corpuscular Volume 87.8 fL (80-100); Platelet Count 323 X10^3/uL (150-400); Red Blood Cell Count 5.51 X10^6/uL (4.5-5.9); Red Cell Distribution Width 12.6 % (11.6-14.8)
[2020-07-18] MEDS: CEFTRIAXONE 1 GM/50 ML FROZ.PIGGY IV (20:14)
[2020-07-18] MEDS: SODIUM CHLORIDE 0.9% 250 ML 21 ML IV (20:15)
[2020-07-18 20:18] LABS: BUN Creatinine Ratio 31.2 (6-22); Blood Urea Nitrogen 24 mg/dL (9-20); Calcium 9.5 mg/dL (8.4-10.2); Carbon Dioxide 21 mmol/L (22-32); Chloride 103 mmol/L (98-107); Estimated Glomerular Filt Rate > 60.0 mL/min (>60); Glucose 126 mg/dL (70-100); HEMOLYSIS 79 (0-50); Potassium 4.5 mmol/L (3.4-5.1); Sodium 133 mmol/L (137-145)
[2020-07-19 00:28] VITALS: BP 110/85; PULSE 91; RESP 18; TEMP 37.1; O2SAT 93
--- NOTE | 2020-07-19 04:12 | PC.NURSE ---
patient is alert and oriented. Breath sounds still with bilateral mid/lower lobe inspiratory crackles. No SOB at rest and RA sat is 93%. States he still has a little bit of a cough but is non productive. HRR. Denies nausea. BT present and abdomen is soft. Denies dysuria, frequency or urgency with urination. Moving self in bed. Up at edge of bed with walker and SBA to urinate; gait not otherwise assessed at this time. Denies pain. Fall risk score is high and bed alarm is activated.
[2020-07-19 07:45] VITALS: O2SAT 93
[2020-07-19 08:00] VITALS: BP 105/77; PULSE 81; RESP 15; TEMP 37.1; O2SAT 93
[2020-07-19] MEDS: BUDESONIDE 0.5 MG/2 ML NEB INH (09:05)
[2020-07-19 09:07] VITALS: PULSE 76; RESP 16; O2SAT 92
[2020-07-19] MEDS: ENOXAPARIN 40 MG/0.4 ML SYRINGE SUBCUT (09:24)
[2020-07-19] MEDS: SODIUM CHLORIDE 0.9% FLUSH 10 ML IV (09:25)
[2020-07-19] MEDS: METFORMIN HCL 500 MG TABLET PO (09:25)
[2020-07-19] MEDS: levoFLOXacin 250 MG TABLET 750 MG PO (09:25)
--- NOTE | 2020-07-19 10:14 | PM.DS.1 ---
History of Present Illness History of Present Illness Chief complaint: states can't breathe, sore throat Narrative: Per H and P by Felisha Valdes: Tushar Sanabria is a pleasant 55 y.o. speaking male who presented with a several day history of fevers, chills and sore throat. He had a fever of 104 and was seen in the ED on July 07 and July 09. He had been discharged on cefdinir and advised to take alternating doses of OTC tylenol and ibuprofen for his fevers. States he had pneumonia in 2006 which was much worse. His main complaint is fever, cough, sore throat and shortness of breath. Denies sick contacts at home or work, n/v, chest pain, abdominal pain, dysuria, diarrhea or constipation. He states he regularly drinks 3 beers a day, but has not had a drink for 6 days and has not experienced withdrawals if he has had to stop drinking in the past. He has a minimal medical history. Chest x-ray done in the emergency department indicated a finding of ?bilateral perihilar and left infrahilar infiltrates. Patient's T-max was 103.1? and it is currently 99.8, blood pressure 130/82, heart rate 104, respiratory rate 21, oxygen saturation of 93% on 1 L, he weighs 69 kg with a BMI of 28. CBC is normal with exception of a mildly elevated neutrophil count of 8300, sodium 134, potassium 3.9, chloride 103, bicarb 21, BUN 18, creatinine 0.9, with a GFR of greater than 60, glucose was 153, lactate 1.1, liver enzymes are elevated with an AST of 82, ALT 130, alk-phos 161, procalcitonin was positive at 0.78, and viral panel including COVID-19 PCR are negative. Discharge Providers Provider Date of admission: 07/12/20 18:21 Discharge Date: 07/19/20 Discharge provider: Faustino Gatica MD Summary Hospital Course Discharge Diagnosis: 1. Acute hypoxemic respiratory failure 2. Pneumonia, acute, probable bacterial 3. Type 2 Diabetes Hospital Course: Mr. Sanabria was admitted with fevers, chills. He was noted to have a fever in the hospital, He was also noted to have imaging with infiltrates consistent with a pneumonia. He was started antibiotics and slowly improved. Because of his slow improvement he had further workup done including echocardiogram which showed no acute process. COVID was negative. With treatment he did have slow improvement and on day of discharge he had improved to being off oxygen and being ambulating with no desaturation and minimal shortness of breath. His xray still showed consolidation but improving aeration of his lungs. He will be discharged on three more days of levofloxacin to complete a long course of antibiotics of 10 days given his slow response. He was also noted to have diabetes with a1c of 7.7 and was started and discharged on metformin. Exam Vital Signs (past 8 hours): Oxygen Delivery Method Room Air Oxygen Flow Rate 0 Narrative Exam Narrative: Gen: Alert, oriented, male, NAD HEENT: normocephalic, atraumatic, conjunctiva clear, sclera non-icteric, oral mucosa pink and moist Neck: supple, full ROM, no JVD, trachea is midline Resp: clear bilaterally, no wheezes, rhonchi, rales CV: RRR, no murmur or rubs Abd: soft, non-tender, normoactive BTs Skin: no lesions or rashes, dry and intact Neuro: Alert and oriented X 4 w/no focal deficits. Speech clear and coherent. Extremities: moves all 4 extremities, is ambulatory, negative Kaylynn?s sign Psyche: normal mood and affect. Objective Labs Result Diagrams: 07/18/20 19:24 07/18/20 19:24 [facility] Medical History (Updated 07/15/20 @ 11:58 by Arminda Hunt RN) Alcohol use Patient denies medical problems Tuberculosis Surgical History History of kidney surgery Family History Mother Unknown family medical history Father Unknown family medical history Social History marital status: unmarried,single details: Single dad, daughter is 15 years of age number of children: 1 household members: family and children lives independently: Yes housing: house occupational status: employed Smoking Status: Never smoker alcohol intake: current Discharge Plan Discharge Plan Patient Disposition: Home Provider Discharge Comment: Mr. Sanabria was admitted with a pneumonia. He had slow but steady improvement on antibiotics. He will be discharged on three more days of antibiotics to complete treatment for his pneumonia. He was no longer febrile and off oxygen on day of discharge. He will also be given a script for metformin as his a1c was 7.7, consistent with diabetes. Discharge orders & Medications Prescriptions: New levofloxacin 750 mg tablet 750 mg PO DAILY Qty: 3 RF: 0 metformin 500 mg tablet 500 mg PO BID Qty: 60 RF: 0 Continued ibuprofen 800 mg tablet 800 mg PO Q8H PRN (Reason: pain) Qty: 20 RF: 0 Discontinued cefdinir 300 mg capsule 300 mg PO Q12H Qty: 14 RF: 0 Diet/Activity/Treatments Diet: Carb-consistent/Diabetic Visit Report/Discharge Packet Instructions: DI for Heart Failure, DI for Prescription Opioid Use, Metformin, Levofloxacin Quality VTE Deep Vein Thrombosis/Pulmonary Embolism Present on Admission: No MIPS - DC The patient has current or prior documentation of left ventricular ejection fraction (LVEF) less than 40%, or moderate or severely depressed left ventricular systolic function.: No
--- NOTE | 2020-07-19 11:14 | CM.DPC ---
DCP: continued: pt has now been ok'd for d/c to home. He is off o2. Will followup with his PCP. Home today as planned.
--- NOTE | 2020-07-19 11:24 | PC.NURSE ---
Patient discharged home w/ family via private vehicle. Patient was educated about new medications, metformin (information was given in [place] Sorbian) and continuing his oral antibiotic for 3 more days. Patient was also educated about a carb consistent diet and limiting his sugar intake, patient had [employer] [place] teaching materials printed that he read and we went over. Patient verbalized understanding of all teaching and I used the teach back method to promote learning. We talked about healthy diet choices at home. Patient was also taught about S/S of returning infection, SS of stroke. Patient verbalized understanding to teaching instructions. Patient was told to follow up with primary care doctor in [facility] and has an appt. with her on 07/21/20. Patient left facility with all medications retrieved from pharmacy and paper prescriptions in hand. Patient left facility with all belongings.
== END 2020-07-19 11:24 | disposition home or self-care (01) | DRG 193 ==
LOC: ED 18:05 → AC 18:22
PROVIDERS: Emergency Medicine; Internal Medicine; Nurse Practitioner Family; Admitting Provider Internal Medicine; Emergency Provider Emergency Medicine; Referring Provider Emergency Medicine; Visit Provider Internal Medicine
DX: J15.9 Unspecified bacterial pneumonia (principal); J96.01 Acute respiratory failure with hypoxia; E11.8 Type 2 diabetes mellitus with unspecified complications; Z86.15 Personal history of latent tuberculosis infection; Z20.822 Contact with and (suspected) exposure to COVID-19
CPT/HCPCS: 36415; 71045; 71046; 71260; 80048; 80053; 80076; 82962; 83036; 83605; 83690; 83735; 84145; 85025; 85027; 85610; 85730; 87040; 87633; 87635; 93005; 93306; 94640; 94668; 94760; 96361; 96365; 99284; 99285; C9803; J1650; J1956; J7613

== ENCOUNTER 2020-08-30 10:19 | Emergency (ER) | payer OTHER, SELFPAY ==
[2020-07-12 19:03] VITALS: BMI 31.2
[2020-08-30] VITALS (14 sets, daily range): BP systolic 116–149; BP diastolic 77–94; PULSE 75–95; RESP 13–20; TEMP 36.4; O2SAT 92–99
--- NOTE | 2020-08-30 10:39 | DI.RAD.S_ITS ---
PROCEDURE: XR SHOULDER LT MIN 2V INDICATIONS: fall w/ pain left shoulder. TECHNIQUE: 2 views of the shoulder were acquired. COMPARISON: None. FINDINGS: Bones: Anterior inferior dislocation of the humeral head at the glenohumeral joint. No suspicious bony lesions. Visualized ribs appear intact. Soft tissues: No suspicious soft tissue calcifications. Left basilar atelectasis. IMPRESSION: Anterior inferior shoulder dislocation. Dictated by: Nate Banegas M.D. on 08/30/2020 at 11:32 Approved by: Nate Banegas M.D. on 08/30/2020 at 11:34
[2020-08-30 13:29] LABS: COVID19 -Nasal RAPID Negative (Negative)
[2020-08-30] MEDS: ONDANSETRON 4 MG/2 ML INJ IV (14:12)
[2020-08-30] MEDS: HYDROMORPHONE 1 MG INJ IV (14:12)
[2020-08-30] MEDS: KETOROLAC 30 MG/ML VIAL IM (15:06)
[2020-08-30] MEDS: diazePAM 5 MG TABLET PO (15:06)
--- NOTE | 2020-08-30 15:54 | PC.NURSE ---
placed in triage
[2020-08-30] MEDS: propofoL 200 MG/20 ML VIAL IV (16:30)
--- NOTE | 2020-08-30 16:38 | DI.RAD.S_ITS ---
PROCEDURE: XR SHOULDER LT 1V INDICATIONS: shoulder dislocation TECHNIQUE: 1 views of the shoulder were acquired. COMPARISON: [facility], CR, XR SHOULDER LT MIN 2V, 08/30/2020, 10:38. FINDINGS: Bones: Humeral head is normally associated with the glenoid compatible with successful reduction. No fractures. No suspicious bony lesions. Visualized ribs appear intact. Soft tissues: No suspicious soft tissue calcifications. IMPRESSION: Status post reduction of left shoulder dislocation. Dictated by: Lianet Quiles MD, PhD on 08/30/2020 at 16:48 Approved by: Lianet Quiles MD, PhD on 08/30/2020 at 16:53
--- NOTE | 2020-08-30 16:58 | ED.UPPEXIN ---
HPI - Extremity Injury (Upper) General Chief Complaint: Extremity Injury, Upper Stated Complaint: left arm pain post fall Time Seen by Provider: 08/30/20 14:10 Source: patient Mode of arrival: Wheelchair History of Present Illness HPI narrative: 55-year-old gentleman with a history of a diabetes, hyperlipidemia and hypertension fell against his truck today injuring his left shoulder and AC joint. He comes in for further evaluation. Initial complaint is inability to move his arm. Related Data Previous Rx's Medication Instructions Recorded ibuprofen 800 mg PO Q8H PRN #20 tab 07/09/20 levofloxacin 750 mg PO DAILY #3 tab 07/19/20 metformin 500 mg PO BID #60 tab 07/19/20 oxycodone-acetaminophen 1 tab PO Q6H PRN 5 Days #12 tab 08/30/20 Allergies Allergy/AdvReac Type Severity Reaction Status Date / Time Penicillins [PENICILLINS] Allergy Unknown Verified 08/30/20 10:38 Review of Systems Review of Systems Narrative: Pertinent positive and negative findings as per HPI Remainder of review of systems is otherwise unremarkable for Constitutional: Fevers, chills, weakness ENT: No sore throat, neck pain, ear pain CV: Chest pain, palpitations, Respiratory: Cough, wheeze, dyspnea GI: Nausea, vomiting, diarrhea, : Dysuria, hematuria, Patient History Medical History Alcohol use Diabetes Hyperlipidemia Hypertension Tuberculosis Surgical History History of kidney surgery Family History Mother Unknown family medical history Father Unknown family medical history Social History marital status: unmarried,single details: Single dad, daughter is 15 years of age number of children: 1 household members: family and children lives independently: Yes housing: house occupational status: employed Smoking Status: Never smoker alcohol intake: current Smoking Status: Never smoker alcohol intake frequency: 3 or more drinks per day Substance Use Type: does not use Exam Narrative Exam Narrative: General: Healthy appearing, in mild distress. Able to give a complete and coherent history. Well-nourished well-developed HEENT: Moist mucous membranes, normal sclera with reactive pupils, Neck: supple Respiratory: Lungs are clear to auscultation, no wheezing no rales no rhonchi. Full and symmetrical air movement Cardiac: Regular rate and rhythm no murmurs no bruits Abdomen: Soft, nontender, good bowel tones, no flank pain Skin: Warm and dry, no rashes Neurologic: Grossly neurologically intact with no obvious asymmetries or abnormalities Extremities: well perfused, left shoulder is obviously dislocated. Mild contusion the posterior aspect of the upper triceps. Psych: Cooperative, appropriate insight and affect Initial Vital Signs Initial Vital Signs: Vital Signs Temperature 97.6 F 08/30/20 10:32 Pulse Rate 92 H 08/30/20 10:32 Respiratory Rate 18 08/30/20 10:32 Blood Pressure 144/78 H 08/30/20 10:32 Pulse Oximetry 99 08/30/20 10:32 Procedures Orthopedic Joint Reduction Left shoulder : Time Out Performed: Yes Side: left Joint Reduction Location: shoulder Analgesia: procedural sedation Shoulder Technique Used (if applicable): traction/counter-traction Technique used: traction/counter-traction and direct manipulation Post-reduction neuro exam: intact Post-reduction vascular: intact Post Reduction X-Ray Obtained: Yes Post Reduction X-Ray Results: reduced Splint Applied: Yes Patient Tolerated Procedure: Well Orthopedic Splinting/Casting left shoulder: Side: left Upper Extremity Injury Location: shoulder Upper Extremity Immobilizer: sling/shoulder immobilizer Post splinting neuro exam: intact Post splinting vascular exam: intact Placed by: Provider Procedural Sedation Consent signed: Yes Time out performed: Yes Indication: fracture/dislocation reduction ASA Class: II Mallampati Airway Classification: Class II Time of Last PO Intake: 12:00 Preparation: court recording monitor applied, pulse oximeter, capnometry used, supplemental O2 applied, suction/airway equipment at bedside and IV secured IV Propofol dose (mg): 100 (40mg push, 20, 20, 20mg to follow) Intraservice time/total sedation time (min): 17 ED Sedation Level: Moderate (Concious) Patient Tolerated Procedure: Well Complications: none Course Orders Ordered: ED Orders 08/30/20 10:39 XR shoulder LT min 2V Stat 08/30/20 13:14 COVID19 -Nasal swab/Pre-Proc Stat 08/30/20 16:38 XR shoulder LT 1V Stat Discontinued Medications Diazepam (Diazepam 5 Mg Tablet) 5 mg PO NOW ONE Stop: 08/30/20 14:29 Last Admin: 08/30/20 15:06 Dose: 5 mg Documented by: BAM Hydromorphone HCl (Hydromorphone 1 Mg Inj) 1 mg IV NOW ONE Stop: 08/30/20 13:05 Last Admin: 08/30/20 14:12 Dose: 0.5 mg Documented by: BAM Ketorolac Tromethamine (Ketorolac 30 Mg/Ml Vial) 30 mg IM NOW ONE Stop: 08/30/20 14:29 Last Admin: 08/30/20 15:06 Dose: 15 mg Documented by: BAM Ondansetron HCl (Ondansetron 4 Mg/2 Ml Inj) 4 mg IV NOW ONE Stop: 08/30/20 13:05 Last Admin: 08/30/20 14:12 Dose: 4 mg Documented by: BAM Propofol (Propofol 200 Mg/20 Ml Vial) 200 mg IV NOW ONE Stop: 08/30/20 16:09 Last Admin: 08/30/20 16:30 Dose: 100 mg Documented by: Vital Signs Vital signs: Vital Signs - 8 hr 08/30/20 10:32 08/30/20 16:23 08/30/20 16:31 Temperature 97.6 F Pulse Rate 92 H 92 H 95 H Respiratory Rate 18 15 20 Blood Pressure 144/78 H 146/90 H 149/90 H Pulse Oximetry 99 97 97 08/30/20 16:35 08/30/20 16:40 08/30/20 16:45 Temperature Pulse Rate 91 H 89 88 Respiratory Rate 18 19 18 Blood Pressure 116/77 117/77 122/81 Pulse Oximetry 93 92 94 08/30/20 16:50 08/30/20 16:55 08/30/20 16:59 Temperature Pulse Rate 84 79 80 Respiratory Rate 16 16 16 Blood Pressure 121/83 130/88 Pulse Oximetry 94 95 95 08/30/20 17:00 08/30/20 17:05 08/30/20 17:10 Temperature Pulse Rate 79 81 81 Respiratory Rate 14 16 13 Blood Pressure 128/90 132/94 H 131/84 Pulse Oximetry 95 96 97 08/30/20 17:23 Temperature Pulse Rate 92 H Respiratory Rate 16 Blood Pressure Pulse Oximetry MDM - Extremity Injury (Upper) Medical Records Attestation: I reviewed the patient's medical records. Lab Data Attestation: I reviewed the patient's lab results. Labs: Lab Results 08/30/20 Range/Units 13:14 SARS-CoV-2 (PCR) Negative (Negative) Imaging Data Xray shoulder: Attestation: I personally reviewed and interpreted this imaging study as follows: My Impression: Possible left AC separation in addition to findings below Radiologist's Impression: FINDINGS: Bones: Anterior inferior dislocation of the humeral head at the glenohumeral joint. No suspicious bony lesions. Visualized ribs appear intact. Soft tissues: No suspicious soft tissue calcifications. Left basilar atelectasis. IMPRESSION: Anterior inferior shoulder dislocation. Dictated by: Nate Banegas M.D. on 08/30/2020 at 11:32 post reduction film FINDINGS: Bones: Humeral head is normally associated with the glenoid compatible with successful reduction. No fractures. No suspicious bony lesions. Visualized ribs appear intact. Soft tissues: No suspicious soft tissue calcifications. IMPRESSION: Status post reduction of left shoulder dislocation. Dictated by: Lianet Quiles MD, PhD on 08/30/2020 at 16:48 MDM Narrative Medical decision making narrative: 55-year-old gentleman with anterior left shoulder dislocation after a fall. No other injuries. With propofol sedation the shoulder was relocated and postreduction films are reviewed. He is placed in a sling for comfort will be given pain medication and suggest follow-up with Orthopedic surgery. Discharge Plan Departure Patient Disposition: Home Clinical Impression: Anterior shoulder dislocation Qualifiers: Encounter type: initial encounter Laterality: left Qualified Code(s): S43.015A - Anterior dislocation of left humerus, initial encounter Fall Qualifiers: Encounter type: initial encounter Qualified Code(s): W19.XXXA - Unspecified fall, initial encounter Instructions: DI for Shoulder Dislocation, DI for Moderate Sedation Activity Restrictions/Additional Instructions: Thank you for coming in today I am so sorry that you have needed to wait so long We were able to get sure shoulder back in place and he seemed to be much more comfortable with the sling in place as well. There were no obvious broken bones on and the x-rays. Your shoulder is going to be sort going to be worse over the next 48 hours. Using 400 mg of ibuprofen (2 [id number] pills) and 1 Tylenol every 6 hours can be very helpful in controlling pain. For severe pain 400 mg of ibuprofen and 1 Percocet can help. Ice to the shoulder can also help with the swelling. Please schedule a follow-up appointment with our orthopedic surgeon on-call today, Dr. Wright at [facility] [phone] I hope you heal quickly Prescriptions: New oxycodone-acetaminophen 5-325 mg tablet 1 tab PO Q6H PRN (Reason: pain) 5 Days Qty: 12 RF: 0 No Action ibuprofen 800 mg tablet 800 mg PO Q8H PRN (Reason: pain) Qty: 20 RF: 0 levofloxacin 750 mg tablet 750 mg PO DAILY Qty: 3 RF: 0 metformin 500 mg tablet 500 mg PO BID Qty: 60 RF: 0 Referrals: Mayte Wright MD [Physician] - Stand Alone Forms: Work Release Note
== END 2020-08-30 17:56 | disposition home or self-care (01) ==
PROVIDERS: Emergency Medicine; Emergency Provider Emergency Medicine
DX: S43.015A Anterior dislocation of left humerus, initial encounter (principal); W19.XXXA Unspecified fall, initial encounter
CPT/HCPCS: 23650; 73020; 73030; 87635; 96372; 96374; 96375; 99152; 99284; 99285; C9803; J1170; J1885; J2405; J2704